=== PATIENT | male | born 1935 | race African-American/Black ===

== ENCOUNTER 2017-07-14 10:20 | Inpatient (IN) ==
[2017-07-14] MEDS ORDERED: DEXTROSE 50% 25 GM/50 ML SYRINGE IV PRN (12:20)
[2017-07-14] MEDS ORDERED: GLUCAGON 1 MG VIAL IM PRN (12:20)
[2017-07-14] MEDS ORDERED: ACETAMINOPHEN 325 MG TABLET PO PRN (12:20)
[2017-07-14] MEDS ORDERED: ALBUTEROL 2.5 MG/3 ML NEB RESP TX PRN (12:20)
[2017-07-14] MEDS ORDERED: GABAPENTIN 300 MG CAPSULE PO PRN (12:25)
[2017-07-14 12:56] LABS: Basophils % 0.6 % (0.0-0.8); Eosinophils # 0.3 10*3/uL (0.0-0.87); Eosinophils % 3.5 % (0.00-10.9); Hematocrit 27.3 VOL% (42.0-52.0); Hemoglobin 8.8 GM/DL (14.0-18.0); Immature Granulocytes % 0.4 %; Immature Granulocytes Absolute 0.03 #; Lymphocytes # 1.7 10*3/uL (1.4-4.0); Lymphocytes % 23.6 % (21.2-54.2); Mean Corpuscular HGB Conc 32.2 GM/DL (32-36); Mean Corpuscular Hemoglobin 28 PG (27-34); Mean Corpuscular Volume 86.9 FL (87-102); Mean Platelet Volume 10.6 FL (9.6-12.0); Monocytes # 0.5 10*3/uL (0.11-0.8); Monocytes % 7.1 % (1.7-12.7); Neutrophils # 4.7 10*3/uL (1.4-7.4); Neutrophils % 64.8 % (38.7-73.9); Platelet Count 139 T/CUMM (130-400); Red Blood Count 3.14 MC/CUMM (3.8-5.5); Red Cell Distribution Width 12.7 % (9.3-17.3); White Blood Count 7.2 T/CUMM (4-12)
[2017-07-14 13:04] LABS: Partial Thromboplastin Time 33.2 SECS (0-40)
[2017-07-14 13:10] LABS: INR 2.3
[2017-07-14 13:25] LABS: Calcium 8.9 MG/DL (8.5-10.1); Magnesium 2.3 MG/DL (1.8-2.4); Osmolality,Calculated 306.1 MOS/KG (273-304)
[2017-07-14] MEDS ORDERED: LIDOCAINE 1%/EPI INJ 20 ML VIAL ONE (13:31)
[2017-07-14] MEDS ORDERED: HEPARIN 5,000 UNIT/1 ML VIAL ONE (13:31)
--- NOTE | 2017-07-14 13:39 | General Surgery Consult Note ---
Assessment and Plan (1) End stage chronic kidney disease Status: Acute Assessment and plan: The patient now with end-stage renal disease with the recommendation to initiate dialysis hopefully today by Dr. Maldonado. We have been requested to place a hemodialysis catheter. The risks of the procedure were reviewed with the patient including but not limited to infection, injury to adjacent structures, pneumothorax, wound healing complications, septicemia which could be life-threatening, clotting of the catheter and the need for additional procedures. Patient expressed understanding of these risks and agrees to proceed with tunneled hemodialysis catheter placement today. Current Visit: Yes History of Present Illness Chief complaint: Needs to HD catheter History of present illness: Mr. Moreno is a 81 year old male with progressive chronic kidney disease now with end-stage renal disease requiring hemodialysis. Patient is a past medical history CAD with CABG in 2002, GERD, hypertension, hyperlipidemia and BPH. We have been consulted for catheter placement. Patient has no history of neck or chest trauma. No signs of recent illness. Home Medications Medication Instructions Recorded Confirmed Type Acetaminophen Tab [Tylenol Tab] 2 caplet PO DIRECTED 05/22/15 07/14/17 History Alfuzosin HCl [Alfuzosin HCl ER] 10 mg PO DAILY 05/22/15 07/14/17 History Aspirin [Ecotrin] 325 mg PO DAILY 05/22/15 07/14/17 History Atorvastatin [Lipitor] 40 mg PO BEDTIME 05/22/15 07/14/17 History Carvedilol 25 mg PO BID 05/22/15 07/14/17 History Esomeprazole Magnesium [Nexium] 40 mg PO DAILY 05/22/15 07/14/17 History Ferrous Sulfate 1 tablet PO DAILY 05/22/15 07/14/17 History Fesoterodine [Toviaz] 4 mg PO DAILY 05/22/15 07/14/17 History Furosemide 40 mg PO DAILY 05/22/15 07/14/17 History Gabapentin 1 tablet PO BEDTIME PRN 05/22/15 07/14/17 History Magnesium Oxide [Magnesium] 400 mg PO BID 05/22/15 07/14/17 History Miralax 1 packet PO DAILY PRN 05/22/15 07/14/17 History Rasagiline [Azilect] 1 mg PO DAILY 05/22/15 07/14/17 History Warfarin Sodium 5 mg PO DIRECTED 05/22/15 07/14/17 History Warfarin Sodium 7.5 mg PO DIRECTED 05/22/15 07/14/17 History cloNIDine HCl [Clonidine HCl] 0.2 mg PO BID 05/22/15 07/14/17 History Carbidopa/Levodopa 25 mg PO TID 07/14/17 07/14/17 History [Carbidopa-Levodopa 25-100 Tab] Ropinirole HCl [Requip] 5 mg PO TID 07/14/17 07/14/17 History Allergies Allergy/AdvReac Type Severity Reaction Status Date / Time No Known Allergies Allergy Verified 05/30/15 06:21 Medical,Surgical,& Family Hx - Medical History Cardio: History of: CAD, Hypertension Comment Only: Cardiovascular Problems (BLOOD CLOT LEG -HX) HEENT: History of: Eye Problem (CATARACTS) Endocrine: History of: Dyslipidemia Respiratory: Comment Only: Respiratory Problems (SINUS SURGERY) Renal: History of: Renal Failure (stage III) Genitourinary: History of: Prostate Problems (BPH) Gastrointestinal: History of: GERD Musculoskeletal: History of: Musculoskeletal Problems Hematology: History of: Anemia - Surgical History Cardiac Surgeries: Sugical HX of: Cardiac Catheterization, Cardiac Surgery ( status post CABG. Stent placement) Neurologic Surgeries: Patient denies: Neurologic Surgery HEENT Surgeries: Surgical HX of: Eye Surgery (CATARACTS) Abdominal Surgeries: Surgical HX of: Appendectomy, Colonoscopy, EGD, Hernia Repair Orthopedic Surgeries: Surgical HX of;: Total Knee Replacement (LEFT) - Family History Family History: Reports;: Family Hypertension (SON DAUGHTER) - Social History Smoking Status: Never smoker - Constitutional Constitutional: Absent: chills, fever(s) Hematologic/Lymphatic: Present: other (pt on chronic coumadin) Exam - Constitutional Vitals: Period Temp Pulse Resp BP Sys/Parker Pulse Ox Last 24 Hr 97.3 F-97.3 F 88-88 18-18 193-193/98-98 97-97 General appearance: no acute distress - Respiratory Respiratory exam: Present: clear to auscultation bilaterally - Cardiovascular Cardiovascular exam: Present: RRR - Neurological Exam Neurological exam: Present: alert, oriented X3 Results - Labs CBC & BMP: 07/14/17 12:42 Labs: Labs pending
[2017-07-14] MEDS ORDERED: ALBUTEROL 2.5 MG/3 ML NEB RESP TX ONE (14:02)
--- NOTE | 2017-07-14 14:09 | Order Completion Report ---
See report scanned to EMR
[2017-07-14 14:11] LABS: Potassium 6.6 MMOL/L (3.5-5.1)
[2017-07-14] MEDS: SODIUM CHLORIDE 0.9% 250 ML IV SCH (14:21)
--- NOTE | 2017-07-14 14:21 | XRay Report ---
History: Shortness of breath Date: 07/14/2017 Study: Chest x-ray AP portable Comparison exam: May 30, 2015 There is mild cardiomegaly. The mediastinal contours are stable in this patient status post prior median sternotomy. The pulmonary vasculature is not grossly engorged. There is moderate elevation of the left hemidiaphragm. There is some minor platelike scar or atelectasis in the left lung base as before. There is no obvious new or worsening infiltrate. There is no gross pleural effusion. Osseous structures are unchanged. Impression: No gross overall change from the previous study PROCEDURE INTERPRETED AT [facility] DEPARTMENT OF RADIOLOGY Final Report Signed by: Dr. Chyna Carrillo
[2017-07-14 14:42] LABS: Hepatitis A Ab IgM Quant 0.19 Index; Hepatitis A Ab IgM Result Negative (Negative); Hepatitis B Core IgM Quant 0.14 Index; Hepatitis B Core IgM Result Negative (Negative); Hepatitis B Surface Ag Quant < 0.10 Index; Hepatitis B Surface Ag Result Negative (Negative); Hepatitis C Virus Ab Quant 0.05 Index; Hepatitis C Virus Ab Result Negative (Negative)
[2017-07-14] MEDS: rOPINIRole 1 MG TABLET PO SCH ×2 (14:44→20:12)
[2017-07-14] MEDS: ENOXAPARIN 30 MG/0.3 ML SYRINGE SUBCUT SCH (14:44)
[2017-07-14] MEDS: CARBIDOPA/LEVODOPA 25-100 MG TABLET PO SCH ×2 (14:45→20:11)
[2017-07-14] MEDS ORDERED: PROPOFOL 200 MG/20 ML VIAL IV ONE (15:06)
[2017-07-14] MEDS ORDERED: LABETALOL 100 MG/20 ML VIAL IV ONE (15:06)
[2017-07-14] MEDS ORDERED: fentaNYL 100 MCG/2 ML VIAL ONE (15:06)
[2017-07-14] MEDS ORDERED: SODIUM CHLORIDE 0.9% 100 ML IV ONE (15:07)
--- NOTE | 2017-07-14 15:12 | Anesthesia Post-Op ---
Anesthesia Post OP - Post Ansesthetic Evaluation Patient seen in post op: Yes Resp: within normal limits CV: within normal limits Mental: within normal limits Temp: within normal limits [id number]: within normal limits Nausea and Vomiting: within normal limits Pain: within normal limits
--- NOTE | 2017-07-14 15:19 | Operative Note ---
Date of procedure: 07/14/17 Pre-op diagnosis: End-stage renal disease Post-op diagnosis: same Procedure: Procedure performed: Placement of right internal jugular tunneled hemodialysis catheter Procedure in detail: After informed consent was obtained, patient was taken operating suite lies upon the operating table. After monitored anesthesia was initiated the patient was placed in Trendelenburg position and the bilateral neck and chest were prepped and draped in usual sterile fashion. After procedural pause ultrasound was brought onto the field through a sterile sleeve covering ultrasound the right neck revealed a patent and compressible right internal jugular vein. Right internal jugular vein was then accessed using an 18-gauge Seldinger needle under ultrasound guidance on the first attempt. There is return of nonpulsatile dark red blood. Guidewire inserted without resistance. Fluoroscopy demonstrated guidewire be coursing in appropriate position. Next a 23 cm cuffed hemodialysis catheter was tunneled from a separate incision in the right chest wall up to the base the right neck. Dilator and sheath were placed over the guidewire using Seldinger technique under fluoroscopic guidance. The dilator and guidewire were removed leaving the sheath in place. The catheter inserted through the sheath and sheath peeled away leaving the catheter tip in superior vena cava. Catheter withdrew and flushed easily was locked with heparinized saline. It was secured in place with 2-0 nylon suture. Incision closed with 2-0 nylon suture. Sterile dressings were applied. The patient was taken recovery room in stable condition. All lap and needle counts were correct at the end the case. Anesthesia: MAC, local Surgeon / Physician: Suman Cleaning Estimated blood loss: other (Less than 10 cc) Specimens: none sent Condition: stable Disposition: PACU Results - Labs CBC & BMP: 07/14/17 12:42 07/14/17 13:49 Discharge Plan - Discharge Medications No Action Magnesium Oxide [Magnesium] 400 mg PO BID Miralax 1 packet PO DAILY PRN PRN Reason: Constipation Fesoterodine [Toviaz] 4 mg PO DAILY Warfarin Sodium 5 mg PO DIRECTED Warfarin Sodium 7.5 mg PO DIRECTED Alfuzosin HCl [Alfuzosin HCl ER] 10 mg PO DAILY Atorvastatin [Lipitor] 40 mg PO BEDTIME Carvedilol 25 mg PO BID Gabapentin 1 tablet PO BEDTIME PRN PRN Reason: neuropathy Furosemide 40 mg PO DAILY Ferrous Sulfate 1 tablet PO DAILY Rasagiline [Azilect] 1 mg PO DAILY cloNIDine HCl [Clonidine HCl] 0.2 mg PO BID Esomeprazole Magnesium [Nexium] 40 mg PO DAILY Acetaminophen Tab [Tylenol Tab] 2 caplet PO DIRECTED Aspirin [Ecotrin] 325 mg PO DAILY Carbidopa/Levodopa [Carbidopa-Levodopa 25-100 Tab] 25 mg PO TID Ropinirole HCl [Requip] 5 mg PO TID - Follow Up or Referral - Forms/Instructions
--- NOTE | 2017-07-14 15:32 | XRay Report ---
Exam: XR chest 1V portable Date: 07/14/2017 3:15 PM Indication: Post dialysis catheter placement Comparison: None Technical: 07/14/2017 Findings: Right IJ dialysis catheter has been placed. The distal tip is in the superior vena cava. There is elevation left hemidiaphragm. Sternotomy wires are present with mild cardiac enlargement. Mild interstitial and alveolar shunt vascularity present. No pneumothorax. Impression: 1. Interval placement right IJ dialysis catheter 2. Component of cardiac decompensation and volume overload with sternotomy wires present. PROCEDURE INTERPRETED AT [facility] DEPARTMENT OF RADIOLOGY Final Report Signed by: Dr. Yusuf Robles
--- NOTE | 2017-07-14 17:01 | Nephrology History & Physical ---
History of Present Illness Chief complaint: End-stage renal disease, hyperkalemia, shortness of breath. History of present illness: Mr. Moreno is a 81 year old male patient with a history of chronic kidney disease due to hypertension has had progressive worsening of his renal function over the last 6 months. He presented to clinic today with a potassium greater than 6 exam creatinine greater than 5.5. There is been no changes in his medications. The family members report the patient has had decreased appetite shortness of breath and increased fatigue. He denies nausea or vomiting. Discussed with patient about renal replacement therapy was done in clinic he agreed to be admitted to have a dialysis catheter in place. Home Medications Medication Instructions Recorded Confirmed Type Acetaminophen Tab [Tylenol Tab] 2 caplet PO DIRECTED 05/22/15 07/14/17 History Alfuzosin HCl [Alfuzosin HCl ER] 10 mg PO DAILY 05/22/15 07/14/17 History Aspirin [Ecotrin] 325 mg PO DAILY 05/22/15 07/14/17 History Atorvastatin [Lipitor] 40 mg PO BEDTIME 05/22/15 07/14/17 History Carvedilol 25 mg PO BID 05/22/15 07/14/17 History Esomeprazole Magnesium [Nexium] 40 mg PO DAILY 05/22/15 07/14/17 History Ferrous Sulfate 1 tablet PO DAILY 05/22/15 07/14/17 History Fesoterodine [Toviaz] 4 mg PO DAILY 05/22/15 07/14/17 History Furosemide 40 mg PO DAILY 05/22/15 07/14/17 History Gabapentin 1 tablet PO BEDTIME PRN 05/22/15 07/14/17 History Magnesium Oxide [Magnesium] 400 mg PO BID 05/22/15 07/14/17 History Miralax 1 packet PO DAILY PRN 05/22/15 07/14/17 History Rasagiline [Azilect] 1 mg PO DAILY 05/22/15 07/14/17 History Warfarin Sodium 5 mg PO DIRECTED 05/22/15 07/14/17 History Warfarin Sodium 7.5 mg PO DIRECTED 05/22/15 07/14/17 History cloNIDine HCl [Clonidine HCl] 0.2 mg PO BID 05/22/15 07/14/17 History Carbidopa/Levodopa 25 mg PO TID 07/14/17 07/14/17 History [Carbidopa-Levodopa 25-100 Tab] Ropinirole HCl [Requip] 5 mg PO TID 07/14/17 07/14/17 History Allergies Allergy/AdvReac Type Severity Reaction Status Date / Time No Known Allergies Allergy Verified 05/30/15 06:21 Review of Systems Constitutional: anorexia, lethargy, no chills Cardiovascular: dyspnea, dyspnea on exertion, no chest pain at rest, no chest pain with activity Respiratory: dyspnea Neurological: no abnormal gait Medical,Surgical,& Family Hx - Medical History Cardio: History of: CAD, Hypertension Comment Only: Cardiovascular Problems (BLOOD CLOT LEG -HX) HEENT: History of: Eye Problem (CATARACTS) Endocrine: History of: Dyslipidemia Respiratory: Comment Only: Respiratory Problems (SINUS SURGERY) Renal: History of: Renal Failure (stage III) Genitourinary: History of: Prostate Problems (BPH) Gastrointestinal: History of: GERD Musculoskeletal: History of: Musculoskeletal Problems Hematology: History of: Anemia - Surgical History Cardiac Surgeries: Sugical HX of: Cardiac Catheterization, Cardiac Surgery ( status post CABG. Stent placement) Neurologic Surgeries: Patient denies: Neurologic Surgery HEENT Surgeries: Surgical HX of: Eye Surgery (CATARACTS) Abdominal Surgeries: Surgical HX of: Appendectomy, Colonoscopy, EGD, Hernia Repair Orthopedic Surgeries: Surgical HX of;: Total Knee Replacement (LEFT) - Family History Family History: Reports;: Family Hypertension (SON DAUGHTER) - Social History Smoking Status: Never smoker Exam - Nephrology - Vital Signs Vital signs: Vital Signs Temp Pulse Pulse Resp BP Pulse Ox Pulse Ox 07/14/17 15:56 98.5 F 80 18 169/84 97 07/14/17 15:45 97.7 F 80 18 180/104 98 07/14/17 15:31 81 18 161/104 97 07/14/17 15:26 83 17 173/116 98 07/14/17 15:21 85 18 176/93 97 07/14/17 15:14 85 17 148/113 97 07/14/17 15:07 97.7 F 88 16 150/117 97 07/14/17 14:19 66 15 99 07/14/17 14:14 65 15 99 07/14/17 12:00 97.3 F L 88 18 193/98 97 07/14/17 11:35 97.3 F L 88 18 193/98 97 - General Appearance General appearance: well-developed, well-nourished, fatigue EENT: ATNC Neck: supple Respiratory: clear Cardiology: regular rate, regular rhythm Gastrointestinal: normoactive bowel sounds, no tenderness Neurologic: alert and oriented x3 Musculoskeletal: no deformities, no clubbing Psychiatric: mood/affect appropriate Results - Labs CBC & BMP: 07/14/17 12:42 07/14/17 13:49 Assessment and Plan (1) Coronary artery disease Status: Chronic Current Visit: No (2) History of ischemic cardiomyopathy Status: Chronic Current Visit: No (3) Hypertension Status: Chronic Current Visit: No Qualifiers: Hypertension type: essential hypertension Qualified Code(s): I10 - Essential (primary) hypertension (4) End stage chronic kidney disease Status: Acute Assessment and plan: Hepatitis panel. Dialysis today. We will plan for 3 hours of dialysis tomorrow. Continue with a 2K bath. Current Visit: Yes
--- NOTE | 2017-07-14 17:04 | Dialysis Note ---
Dialysis Note - Dialysis Note Patient seen on dialysis. Tolerating the procedure. Blood pressure 132/72. Cardiovascular regular rate. Lungs clear to auscultation.
[2017-07-14] MEDS: INSULIN REGULAR 100 UNIT/ML SUBCUT SCH ×2 (18:30→20:51)
[2017-07-14] MEDS: ATORVASTATIN 40 MG TABLET PO SCH (20:11)
[2017-07-14] MEDS: DOCUSATE SODIUM 100 MG CAPSULE PO SCH (20:11)
[2017-07-14] MEDS: CARVEDILOL 25 MG TABLET PO SCH (20:12)
[2017-07-15] MEDS: SODIUM CHLORIDE 0.9% 250 ML IV SCH (03:28)
[2017-07-15 05:20] LABS: Basophils # 0.1 10*3/uL (0.0-0.2); Basophils % 0.6 % (0.0-0.8); Eosinophils # 0.3 10*3/uL (0.0-0.87); Eosinophils % 3.7 % (0.00-10.9); Hematocrit 25.1 VOL% (42.0-52.0); Immature Granulocytes % 0.4 %; Immature Granulocytes Absolute 0.03 #; Lymphocytes # 2.1 10*3/uL (1.4-4.0); Mean Corpuscular HGB Conc 31.9 GM/DL (32-36); Mean Corpuscular Hemoglobin 28 PG (27-34); Mean Corpuscular Volume 87.2 FL (87-102); Mean Platelet Volume 10.9 FL (9.6-12.0); Monocytes # 0.7 10*3/uL (0.11-0.8); Monocytes % 9.1 % (1.7-12.7); Neutrophils # 4.8 10*3/uL (1.4-7.4); Neutrophils % 60.2 % (38.7-73.9); Platelet Count 103 T/CUMM (130-400); Red Blood Count 2.88 MC/CUMM (3.8-5.5); Red Cell Distribution Width 12.4 % (9.3-17.3)
[2017-07-15 05:58] LABS: Albumin 3.3 G/DL (3.4-5.0); Calcium 8.6 MG/DL (8.5-10.1); Osmolality,Calculated 298.3 MOS/KG (273-304); Phosphorous 4.2 MG/DL (2.5-4.9); Potassium 5.7 MMOL/L (3.5-5.1)
[2017-07-15] MEDS: INSULIN REGULAR 100 UNIT/ML SUBCUT SCH ×4 (08:02→21:23)
[2017-07-15] MEDS: rOPINIRole 1 MG TABLET PO SCH ×3 (08:44→21:22)
[2017-07-15] MEDS: RASAGILINE 0.5 MG TABLET PO SCH (08:44)
[2017-07-15] MEDS: CARBIDOPA/LEVODOPA 25-100 MG TABLET PO SCH ×3 (08:45→21:23)
[2017-07-15] MEDS: ALFUZOSIN 10 MG TABLET PO SCH (08:45)
[2017-07-15] MEDS: DOCUSATE SODIUM 100 MG CAPSULE PO SCH ×2 (08:45→21:23)
[2017-07-15] MEDS: PANTOPRAZOLE 40 MG TABLET PO SCH (08:45)
[2017-07-15] MEDS: ENOXAPARIN 30 MG/0.3 ML SYRINGE SUBCUT SCH ×2 (08:45→12:55)
[2017-07-15] MEDS: CARVEDILOL 25 MG TABLET PO SCH ×2 (08:45→21:23)
[2017-07-15] MEDS ORDERED: HEPARIN 10,000 UNIT/10 ML VIAL IV PRN (11:20)
--- NOTE | 2017-07-15 12:15 | Dialysis Note ---
Dialysis Note - Dialysis Note Mr. Moreno is seen during his hemodialysis and he is doing well. His blood pressure stable.
--- NOTE | 2017-07-15 14:18 | Cardiology Consult Note ---
I, Maria Luisa Das RN, am scribing for, and in the presence of, Tyson Perales MD 14:17. Assessment and Plan - Time spent with patient Time spent with patient: Greater than 30 minutes (Due to assessment, planning, documentation, medication review) (1) Coronary artery disease Status: Chronic Assessment and plan: Clinically he is well compensated and free of angina. Continue current management. 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 His INR yesterday was 2.3. His warfarin is currently on hold. I think it is safe to stop the Coumadin at this time. If he develops repeat thrombosis in the future we could reconsider this. For now, I think we can leave this off as dialysis patients already have an increased risk of bleeding, particularly on full anticoagulation. I am going to drop off his case at this time. If I can be of further assistance please let me know. The patient has a follow-up appointment with Dr. Gerber, his primary head of maintenance next month. Current Visit: Yes (3) End stage chronic kidney disease Status: Acute Assessment and plan: Patient was admitted for placement of dialysis catheter. Nephrology is following. Current Visit: Yes (4) Status post coronary artery bypass grafting Status: Acute Assessment and plan: He had three-vessel coronary bypass grafting in March 2003. Current Visit: No (5) History of ischemic cardiomyopathy Status: Chronic Assessment and plan: Ejection fraction 55% by echocardiogram done November 19, [address] Gerber's office. Current Visit: No (6) Hypertension Status: Chronic Assessment and plan: His blood pressures been elevated since admission, his home medications have been restarted. Current Visit: No Qualifiers: Hypertension type: essential hypertension Qualified Code(s): I10 - Essential (primary) hypertension History of Present Illness - Data of Consult Patient: known to practice within the last 3 years Consult date: 07/14/17 Requesting Physician: Byron Soliz Jr. Primary care physician: Cristal Marshall - Consult Narrative Reason for consult: History of CAD, on Coumadin now on dialysis History of present illness: Outreach Educator: Dr. Gerber PCP: Dr. Marshall Mr. Moreno is a 81 year old male with a history of CAD, BPH, ischemic cardiomyopathy, chronic kidney disease, history of DVT, esophageal stricture, GERD, hypertension, and dyslipidemia. He is a fair historian although somewhat difficult to understand his speech. He underwent coronary artery bypass surgery with SALAZAR to the left anterior descending coronary artery and single reverse saphenous vein graft to the diagonal and right coronary arteries on April 14, 2003. Echocardiogram done at Dr. Gerber's office November 19, 2016 with ejection fraction 55%, grade 1 diastolic dysfunction. Other surgical history includes bilateral cataracts, appendectomy, and left knee replacement. He reports he is a former smoker, stating he quit about 40 years ago. Mr. Moreno was seen Dr. Soliz's office on July 14 with potassium greater than 6 and creatinine greater than 5.5. He was admitted to the hospital to have a dialysis catheter placed. He underwent placement of right internal jugular tunneled hemodialysis catheter on July [address] Cleaning. He was dialyzed on July 14. Cardiology was consulted to see the patient regarding history of CAD and to review whether or not he should remain on full anticoagulation, now that he is on dialysis. He is anticoagulated on warfarin because of a history of DVT. Apparently when he had knee surgery about a year or so ago he developed a deep venous thrombosis and has been on warfarin since that time. INR yesterday was 2.3. His warfarin is currently on hold. He denies any chest pain, dizziness, or palpitations. He does complain of some dyspnea on exertion, but states he has had this for about 6 months and has gotten no worse. His H&H today is low at 8.0 and 25.1. Platelet count is 103. His potassium has improved some at 5.7 and creatinine down to 4.7. He tells me he is scheduled to dialyze again today. His blood pressures been elevated since admission, they are little better this morning at 159/86. CC: Byron Soliz Jr., MD - Home Medications and Allergies Home Medications: Home Medications Medication Instructions Recorded Confirmed Type Acetaminophen Tab [Tylenol Tab] 2 caplet PO DIRECTED 05/22/15 07/14/17 History Alfuzosin HCl [Alfuzosin HCl ER] 10 mg PO DAILY 05/22/15 07/14/17 History Aspirin [Ecotrin] 325 mg PO DAILY 05/22/15 07/14/17 History Atorvastatin [Lipitor] 40 mg PO BEDTIME 05/22/15 07/14/17 History Carvedilol 25 mg PO BID 05/22/15 07/14/17 History Esomeprazole Magnesium [Nexium] 40 mg PO DAILY 05/22/15 07/14/17 History Ferrous Sulfate 1 tablet PO DAILY 05/22/15 07/14/17 History Fesoterodine [Toviaz] 4 mg PO DAILY 05/22/15 07/14/17 History Furosemide 40 mg PO DAILY 05/22/15 07/14/17 History Gabapentin 1 tablet PO BEDTIME PRN 05/22/15 07/14/17 History Magnesium Oxide [Magnesium] 400 mg PO BID 05/22/15 07/14/17 History Miralax 1 packet PO DAILY PRN 05/22/15 07/14/17 History Rasagiline [Azilect] 1 mg PO DAILY 05/22/15 07/14/17 History Warfarin Sodium 5 mg PO DIRECTED 05/22/15 07/14/17 History Warfarin Sodium 7.5 mg PO DIRECTED 05/22/15 07/14/17 History cloNIDine HCl [Clonidine HCl] 0.2 mg PO BID 05/22/15 07/14/17 History Carbidopa/Levodopa 25 mg PO TID 07/14/17 07/14/17 History [Carbidopa-Levodopa 25-100 Tab] Ropinirole HCl [Requip] 5 mg PO TID 07/14/17 07/14/17 History Allergies/Adverse Reactions: Allergies Allergy/AdvReac Type Severity Reaction Status Date / Time No Known Allergies Allergy Verified 05/30/15 06:21 - Constitutional Constitutional: Present: as per HPI - EENT Eyes: Present: blurry vision, requires corrective lense Ears: Absent: ear pain, tinnitus Nose, mouth and throat: Absent: epistaxis, headache(s) - Cardiovascular Cardiovascular: Present: dyspnea on exertion. Absent: chest pain at rest, chest pain with activity, diaphoresis, dyspnea, edema, radiating jaw, neck or arm pain, lightheadedness, orthopnea, palpitations - Respiratory Respiratory: Present: dyspnea on exertion. Absent: cough, dyspnea, hemoptysis, wheezing - Gastrointestinal Gastrointestinal: Present: nausea. Absent: abdominal pain, constipation, diarrhea, hematemesis, hematochezia, melena, vomiting - Genitourinary Genitourinary: Absent: dysuria, hematuria - Musculoskeletal Musculoskeletal: Present: limited range of motion, muscle weakness - Neurological Neurological: Present: abnormal speech. Absent: confusion, dizziness, headache( s), syncope - Psychiatric Psychiatric: Absent: anxiety, depression - Endocrine Endocrine: Present: fatigue Medical,Surgical,& Family Hx - Medical History Cardio: History of: CAD, Hypertension Comment Only: Cardiovascular Problems (BLOOD CLOT LEG -HX) Endocrine: History of: Dyslipidemia Respiratory: Comment Only: Respiratory Problems (SINUS SURGERY) Renal: History of: Renal Failure (stage III) Genitourinary: History of: Prostate Problems (BPH) Gastrointestinal: History of: GERD Musculoskeletal: History of: Musculoskeletal Problems Hematology: History of: Anemia - Surgical History Cardiac Surgeries: Sugical HX of: Cardiac Surgery (status post CABG in 2002) HEENT Surgeries: Surgical HX of: Eye Surgery (CATARACTS) Abdominal Surgeries: Surgical HX of: Appendectomy, Colonoscopy, EGD, Hernia Repair Orthopedic Surgeries: Surgical HX of;: Total Knee Replacement (LEFT) - Family History Family History: Reports;: Family Hypertension (SON DAUGHTER) - Social History Smoking Status: Former smoker (Reportedly quit 40 years ago) Have you smoked in the last 12 months: No Frequency of Alcohol Use: None Type of Drug Use: None Lives With:: Children Functional capacity: uses cane/walker Physical Examination Vital Signs Temp Pulse Resp BP Pulse Ox 97.3 F L 88 18 193/98 97 07/14/17 11:35 07/14/17 11:35 07/14/17 11:35 07/14/17 11:35 07/14/17 11:35 General: Present: Appears Well, No Apparent Distress HEENT: Present: PERRL, Mucus Membranes Moist Neck: Present: Supple Neck, Midline Trachea, No Bruit Cardiac: Present: Reg Rate and Rhythm, No Murmur Lungs: Present: Normal Breath Sounds, No Wheeze, Rales, Rhonchi Neuro: Present: Resting Tremor. Absent: Essential Tremor Abdomen: Present: Soft, Active Bowel Sounds, Non-Tender. Absent: Distended Skin: Absent: Rash, Suspicious Lesions Extremities: Present: No Edema, Normal Upper Extr. Pulses, Normal Lower Extr. Pulses Result/EKG - Labs CBC & BMP: 07/15/17 04:51 07/15/17 04:51 Lab Results: I have reviewed the past 24 hour labs Labs: Laboratory Results - last 24 hr 07/14/17 07/14/17 07/14/17 12:42 12:42 12:42 WBC 7.2 RBC 3.14 L Hgb 8.8 L Hct 27.3 L MCV 86.9 L MCH 28 MCHC 32.2 RDW 12.7 Plt Count 139 MPV 10.6 Neut % (Auto) 64.8 Lymph % (Auto) 23.6 [place] % (Auto) 7.1 Eos % (Auto) 3.5 Baso % (Auto) 0.6 Neut # (Auto) 4.7 Lymph # (Auto) 1.7 [place] # (Auto) 0.5 Eos # (Auto) 0.3 Baso # (Auto) 0.0 Immature Gran % 0.4 Nucleated RBC % 0.0 Immature Gran # 0.03 Nucleated RBCs # 0.00 Immature Plt Fraction 0.0 INR 2.3 PT Patient/Control Mix 24.0 D Circ Anticoag PTT 33.2 Sodium Potassium Chloride Carbon Dioxide Anion Gap BUN Creatinine GFR Calculation BUN/Creatinine Ratio Glucose POC Glucose Calculated Osmolality Calcium Phosphorus Magnesium Albumin Hepatitis A IgM Ab Negative Hep Bs Antigen Negative Hep B Core IgM Ab Negative Hepatitis C Antibody Negative 07/14/17 07/14/17 07/14/17 13:48 13:49 20:25 WBC RBC Hgb Hct MCV MCH MCHC RDW Plt Count MPV Neut % (Auto) Lymph % (Auto) [place] % (Auto) Eos % (Auto) Baso % (Auto) Neut # (Auto) Lymph # (Auto) [place] # (Auto) Eos # (Auto) Baso # (Auto) Immature Gran % Nucleated RBC % Immature Gran # Nucleated RBCs # Immature Plt Fraction INR PT Patient/Control Mix Circ Anticoag PTT Sodium 142 Potassium 6.6 H* Chloride 113 H Carbon Dioxide 22 Anion Gap 13.6 BUN 80 H Creatinine 5.50 H GFR Calculation 14 BUN/Creatinine Ratio 14.00 Glucose 94 POC Glucose 106 175 H Calculated Osmolality 306.1 H Calcium 8.9 Phosphorus Magnesium 2.3 Albumin Hepatitis A IgM Ab Hep Bs Antigen Hep B Core IgM Ab Hepatitis C Antibody 07/15/17 07/15/17 07/15/17 04:51 04:51 08:01 WBC 8.0 RBC 2.88 L Hgb 8.0 L Hct 25.1 L MCV 87.2 MCH 28 MCHC 31.9 L RDW 12.4 Plt Count 103 L D MPV 10.9 Neut % (Auto) 60.2 Lymph % (Auto) 26.0 [place] % (Auto) 9.1 Eos % (Auto) 3.7 Baso % (Auto) 0.6 Neut # (Auto) 4.8 Lymph # (Auto) 2.1 [place] # (Auto) 0.7 Eos # (Auto) 0.3 Baso # (Auto) 0.1 Immature Gran % 0.4 Nucleated RBC % 0.0 Immature Gran # 0.03 Nucleated RBCs # 0.00 Immature Plt Fraction 0.0 INR PT Patient/Control Mix Circ Anticoag PTT Sodium 141 Potassium 5.7 H Chloride 109 H Carbon Dioxide 24 Anion Gap 13.7 BUN 64 H D Creatinine 4.70 H GFR Calculation 17 BUN/Creatinine Ratio 13.00 Glucose 90 POC Glucose 99 Calculated Osmolality 298.3 Calcium 8.6 Phosphorus 4.2 Magnesium Albumin 3.3 L Hepatitis A IgM Ab Hep Bs Antigen Hep B Core IgM Ab Hepatitis C Antibody - Diagnostic Findings Procedure: Chest x-ray: report reviewed by me - EKG EKG results: interpreted by ms EKG shows: sinus rhythm IDiaz Michael, MD, personally performed the services described in this documentation, ascribed by Maria Luisa Das RN in my presence, and it is both accurate and complete 418 .
--- NOTE | 2017-07-15 15:36 | Event Note ---
Patient is postop day #1 status post tunneled hemodialysis catheter placement. The device functioned without difficulty. A post procedure chest x-ray performed confirm proper placement. There is no active bleeding or hematoma noted at the insertion site. Patient has been afebrile. No further surgical service is required. Patient may follow-up in the outpatient clinic with Dr. Cleaning in 2-3 weeks following vein mapping.
[2017-07-15] MEDS: ATORVASTATIN 40 MG TABLET PO SCH (21:23)
[2017-07-16 06:29] LABS: Basophils % 0.4 % (0.0-0.8); Eosinophils # 0.3 10*3/uL (0.0-0.87); Eosinophils % 4.3 % (0.00-10.9); Hematocrit 23.5 VOL% (42.0-52.0); Immature Granulocytes % 0.3 %; Immature Granulocytes Absolute 0.02 #; Lymphocytes # 2.1 10*3/uL (1.4-4.0); Lymphocytes % 28.5 % (21.2-54.2); Mean Corpuscular HGB Conc 32.8 GM/DL (32-36); Mean Corpuscular Hemoglobin 28 PG (27-34); Mean Corpuscular Volume 85.5 FL (87-102); Mean Platelet Volume 11.1 FL (9.6-12.0); Monocytes # 0.7 10*3/uL (0.11-0.8); Monocytes % 9.9 % (1.7-12.7); Neutrophils # 4.1 10*3/uL (1.4-7.4); Neutrophils % 56.6 % (38.7-73.9); Red Blood Count 2.75 MC/CUMM (3.8-5.5); Red Cell Distribution Width 12.3 % (9.3-17.3); White Blood Count 7.2 T/CUMM (4-12)
[2017-07-16 06:39] LABS: Hemoglobin 7.7 GM/DL (14.0-18.0); Platelet Count 81 T/CUMM (130-400)
[2017-07-16 07:02] LABS: Burr Cells Slight; Elliptocytes Few; Giant Platelets Few; Hypochromasia 1+; Platelet Estimate Decreased
[2017-07-16] MEDS: INSULIN REGULAR 100 UNIT/ML SUBCUT SCH ×4 (08:01→21:07)
[2017-07-16] MEDS ORDERED: SODIUM CHLORIDE 0.9% 250 ML IV PRN (08:04)
[2017-07-16] MEDS: rOPINIRole 1 MG TABLET PO SCH ×3 (08:41→21:52)
[2017-07-16] MEDS: DOCUSATE SODIUM 100 MG CAPSULE PO SCH ×2 (08:41→21:07)
[2017-07-16] MEDS: PANTOPRAZOLE 40 MG TABLET PO SCH (08:42)
[2017-07-16] MEDS: CARBIDOPA/LEVODOPA 25-100 MG TABLET PO SCH ×3 (08:42→21:07)
[2017-07-16] MEDS: RASAGILINE 0.5 MG TABLET PO SCH (08:42)
[2017-07-16] MEDS: ENOXAPARIN 30 MG/0.3 ML SYRINGE SUBCUT SCH ×2 (08:42→12:43)
[2017-07-16] MEDS: ALFUZOSIN 10 MG TABLET PO SCH (08:42)
[2017-07-16] MEDS: CARVEDILOL 25 MG TABLET PO SCH ×2 (08:42→21:07)
--- NOTE | 2017-07-16 12:40 | Dialysis Note ---
Dialysis Note - Dialysis Note Mr. Moreno is seen during his hemodialysis. He is lying flat breathing easily. Blood pressures been stable he has no complaints.
--- NOTE | 2017-07-16 15:31 | Nephrology Progress Note ---
Nephrology - PN: Subj Interval history: Patient is resting comfortably. Tolerated dialysis well yesterday. I may arrange for patient to get outpatient hemodialysis at the [facility] dialysis unit on a Thursday schedule. Plan for dialysis tomorrow. Exam (PN)-Nephrology - Vital Signs Vital signs: Period Temp Pulse Resp BP Sys/Parker Pulse Ox Last 24 Hr 97.3 F-98.7 F 82-91 18-22 116-146/69-78 94-99 - General Appearance General appearance: well-developed, well-nourished EENT: ATNC Neck: supple Respiratory: clear Cardiology: regular rate, regular rhythm Gastrointestinal: normoactive bowel sounds Neurologic: alert and oriented x3 Musculoskeletal: no clubbing Psychiatric: mood/affect appropriate, cooperative - Lab 07/16/17 05:08 07/15/17 04:51 Most recent lab results Calcium 8.6 MG/DL (8.5-10.1) 07/15/17 04:51 Phosphorus 4.2 MG/DL (2.5-4.9) 07/15/17 04:51 Magnesium 2.3 MG/DL (1.8-2.4) 07/14/17 13:49 Assessment and Plan (1) Coronary artery disease Status: Chronic Current Visit: Yes (2) History of ischemic cardiomyopathy Status: Chronic Current Visit: No (3) Hypertension Status: Chronic Current Visit: No Qualifiers: Hypertension type: essential hypertension Qualified Code(s): I10 - Essential (primary) hypertension (4) End stage chronic kidney disease Status: Chronic Assessment and plan: End-stage renal disease. Outpatient hemodialysis at the [facility] dialysis unit on Thursday schedule. Current Visit: Yes Specialty Discharge - Follow Up or Referrals Follow up with: Suman Cleaning MD [Physician] - 08/05/17 10:00 am (VEIN MAPPING THEN FOLLOW UP IN 2-3 WEEKS vein mapping is schedule for 08/03/2017@2:[address] Cleaning patient need to bring Id or Home Health Care Provider [place], list of medicne,insurance card )
[2017-07-16] MEDS: ATORVASTATIN 40 MG TABLET PO SCH (21:07)
[2017-07-17 06:40] LABS: Basophils % 0.5 % (0.0-0.8); Eosinophils # 0.4 10*3/uL (0.0-0.87); Hematocrit 27.4 VOL% (42.0-52.0); Hemoglobin 9.1 GM/DL (14.0-18.0); Immature Granulocytes % 0.4 %; Immature Granulocytes Absolute 0.03 #; Lymphocytes # 2.1 10*3/uL (1.4-4.0); Lymphocytes % 28.1 % (21.2-54.2); Mean Corpuscular HGB Conc 33.2 GM/DL (32-36); Mean Corpuscular Hemoglobin 28 PG (27-34); Mean Corpuscular Volume 85.6 FL (87-102); Mean Platelet Volume 11.3 FL (9.6-12.0); Monocytes # 0.8 10*3/uL (0.11-0.8); Monocytes % 10.9 % (1.7-12.7); Neutrophils # 4.1 10*3/uL (1.4-7.4); Neutrophils % 55.1 % (38.7-73.9); Platelet Count 71 T/CUMM (130-400); Red Cell Distribution Width 12.8 % (9.3-17.3); White Blood Count 7.4 T/CUMM (4-12)
[2017-07-17 07:05] LABS: Eosinophils 7 % (0-10); Giant Platelets Few; Hypochromasia 1+; Lymphocytes 23 % (20-55); Ovalocytes Slight; Platelet Estimate Decreased; Segmented Neutrophils 60 % (50-85); Total Cells Counted 100
[2017-07-17] MEDS: INSULIN REGULAR 100 UNIT/ML SUBCUT SCH ×3 (09:10→16:52)
[2017-07-17] MEDS: rOPINIRole 1 MG TABLET PO SCH ×2 (09:11→15:30)
[2017-07-17] MEDS: CARBIDOPA/LEVODOPA 25-100 MG TABLET PO SCH ×2 (09:11→15:30)
[2017-07-17] MEDS: ALFUZOSIN 10 MG TABLET PO SCH (09:11)
[2017-07-17] MEDS: CARVEDILOL 25 MG TABLET PO SCH (09:12)
[2017-07-17] MEDS: DOCUSATE SODIUM 100 MG CAPSULE PO SCH (09:12)
[2017-07-17] MEDS: PANTOPRAZOLE 40 MG TABLET PO SCH (09:12)
[2017-07-17] MEDS: RASAGILINE 0.5 MG TABLET PO SCH (09:12)
--- NOTE | 2017-07-17 11:38 | Dialysis Note ---
Dialysis Note - Dialysis Note Patient seen on hemodialysis, he is tolerating will continue his treatment unchanged.
--- NOTE | 2017-07-17 15:01 | Discharge Summary ---
Hospital Course - Hospital Course Hospital Course: This hospitalization included patient admitted for fatigue and shortness of breath and to initiate hemodialysis. Patient had a dialysis catheter placed without event. Patient underwent hemodialysis without any issues. He had 2 units packed red blood cells given on the day before discharge. Hematocrit has been stable. Arrangements made for patient to have outpatient hemodialysis. He continued to do well throughout the rest of his hospitalization. No shortness of breath or chest pain. He is reached maximal hospitalization is prepared for discharge. He will follow outpatient hemodialysis at the [facility] dialysis unit on a Thursday schedule. Diagnosis - Discharge Diagnosis (1) Coronary artery disease Status: Chronic (2) History of ischemic cardiomyopathy Status: Chronic (3) Hypertension Status: Chronic (4) End stage chronic kidney disease Status: Chronic (5) Anemia Status: Chronic Specialty Discharge - Follow Up or Referrals Follow up with: Suman Cleaning MD [Physician] - 08/05/17 10:00 am (VEIN MAPPING THEN FOLLOW UP IN 2-3 WEEKS vein mapping is schedule for 08/03/2017@2:[address] Cleaning patient need to bring Id or Principal Systems Engineer [employer], list of medicne,insurance card ) Discharge Plan - Discharge Data Disposition: Disch To Home/Self Care Condition at Discharge: Stable Discharge Diet: advance to your usual diet Hygiene: no restrictions Contact your physician if you experience:: fever over 101 - Discharge Medications New HYDROcodone/ACETAMIN 5-325 [Kimper 5-325] 1 tablet PO Q4H PRN tablet PRN Reason: Pain Moderate (4-7) Continue Miralax 1 packet PO DAILY PRN PRN Reason: Constipation Fesoterodine [Toviaz] 4 mg PO DAILY Alfuzosin HCl [Alfuzosin HCl ER] 10 mg PO DAILY Atorvastatin [Lipitor] 40 mg PO BEDTIME Carvedilol 25 mg PO BID Gabapentin 1 tablet PO BEDTIME PRN PRN Reason: neuropathy Ferrous Sulfate 1 tablet PO DAILY Rasagiline [Azilect] 1 mg PO DAILY cloNIDine HCl [Clonidine HCl] 0.2 mg PO BID Esomeprazole Magnesium [Nexium] 40 mg PO DAILY Carbidopa/Levodopa [Carbidopa-Levodopa 25-100 Tab] 25 mg PO TID Ropinirole HCl [Requip] 5 mg PO TID Discontinued Magnesium Oxide [Magnesium] 400 mg PO BID Warfarin Sodium 5 mg PO DIRECTED Warfarin Sodium 7.5 mg PO DIRECTED Furosemide 40 mg PO DAILY Acetaminophen Tab [Tylenol Tab] 2 caplet PO DIRECTED Aspirin [Ecotrin] 325 mg PO DAILY - Follow Up or Referral Follow Up: Suman Cleaning MD [Physician] - 08/05/17 10:00 am (VEIN MAPPING THEN FOLLOW UP IN 2-3 WEEKS vein mapping is schedule for 08/03/2017@2:[address] Cleaning patient need to bring Id or Principal Systems Engineer [employer], list of medicne,insurance card ) - Forms/Instructions Exam - Constitutional Vitals: Period Temp Pulse Resp BP Sys/Parker Pulse Ox Last 24 Hr 97.0 F-98.2 F 76-94 18-20 112-133/60-77 92-96 General appearance: normal weight - Head Head exam: Present: normal inspection - Respiratory Respiratory exam: Present: clear to auscultation bilaterally - Cardiovascular Cardiovascular exam: Present: regular rate and rhythm - GI/Abdominal GI/Abdominal exam: Present: normal bowel sounds - Extremities Exam Extremities exam: Present: normal inspection - Neurological Exam Neurological exam: Present: alert, oriented X3, CN II-XII intact - Psychiatric Psychiatric exam: Present: normal affect - Skin Skin exam: Present: normal color Discharge Results Procedures and tests throughout hospitalization: Pending Orders 07/16/17 05:05 Red Blood Cells Leuko Red Stat Type and Screen Stat Labs on day of discharge: Labs from last 24 hours 07/17/17 07/17/17 07/17/17 11:25 07:07 06:05 WBC 7.4 RBC 3.20 L Hgb 9.1 L Hct 27.4 L MCV 85.6 L MCH 28 MCHC 33.2 RDW 12.8 Plt Count 71 L MPV 11.3 Neut % (Auto) 55.1 Lymph % (Auto) 28.1 [place]ell % (Auto) 10.9 Eos % (Auto) 5.0 Baso % (Auto) 0.5 Neut # (Auto) 4.1 Lymph # (Auto) 2.1 [place]ell # (Auto) 0.8 Eos # (Auto) 0.4 Baso # (Auto) 0.0 Total Counted 100 Immature Gran % 0.4 Nucleated RBC % 0.0 Immature Gran # 0.03 Segmented Neutrophils 60 Lymphocytes 23 Monocytes 10 Eosinophils 7 Nucleated RBCs # 0.00 Platelet Estimate Decreased Giant Platelets Few Immature Plt Fraction 0.0 Hypochromasia 1+ Ovalocytes Slight Morphology Comment POC Glucose 133 H 106 07/16/17 07/16/17 18:51 15:56 WBC RBC Hgb Hct MCV MCH MCHC RDW Plt Count MPV Neut % (Auto) Lymph % (Auto) [place]ell % (Auto) Eos % (Auto) Baso % (Auto) Neut # (Auto) Lymph # (Auto) [place]ell # (Auto) Eos # (Auto) Baso # (Auto) Total Counted Immature Gran % Nucleated RBC % Immature Gran # Segmented Neutrophils Lymphocytes Monocytes Eosinophils Nucleated RBCs # Platelet Estimate Giant Platelets Immature Plt Fraction Hypochromasia Ovalocytes Morphology Comment POC Glucose 104 205 H DS: Provider Date of admission: 07/14/17 10:48 Primary care physician: Cristal Marshall, Attending physician on admission: Byron Soliz Jr., MD Consults: 07/14/17 12:20 Consult to Physician [CONS] Routine Comment: Consulting Provider: Suman Cleaning When should Consulting Provider be notified: Now 07/14/17 12:22 Consult to Physician [CONS] Routine Comment: new dialysis pt, needs catheters Consulting Provider: Suman Cleaning Person Notified: [email or web address] Date Notified: 07/14/17 Time Notified: 12:23 07/14/17 12:23 Consult to Case Mgmt/Social Srvs [CONS] Routine Reason for Case Mgmt/Social Srvs: Home Health Rehab Dialysis Discharge Planning 07/14/17 17:05 Consult to Physician [CONS] Routine Comment: History of CAD on coumadin now on dialysis Consulting Provider: Davide Gerber When should Consulting Provider be notified: In am Person Notified: JOSE L Date Notified: 07/15/17 Time Notified: 08:59 07/15/17 09:42 Consult to Physical Therapy [CONS] Routine Reason for Physical Therapy: Evaluate and Treat Discharging clinician: Byron Soliz Jr., MD
[2017-07-17] MEDS: ENOXAPARIN 30 MG/0.3 ML SYRINGE SUBCUT SCH (15:30)
[2017-07-17 16:38] VITALS: BP 129/70
== END 2017-07-17 17:14 | disposition home health service (06) | DRG 673 ==
LOC: N.5E 10:48
PROVIDERS: ADMIT Internal Medicine Nephrology; ATTEND Internal Medicine Nephrology

== ENCOUNTER 2017-08-20 12:05 | Inpatient (IN) ==
[2017-08-20 13:46] LABS: Basophils % 0.3 % (0.0-0.8); Eosinophils # 0.3 10*3/uL (0.0-0.87); Eosinophils % 2.8 % (0.00-10.9); Hematocrit 29.3 VOL% (42.0-52.0); Hemoglobin 9.5 GM/DL (14.0-18.0); Immature Granulocytes % 0.5 %; Immature Granulocytes Absolute 0.05 #; Lymphocytes # 1.8 10*3/uL (1.4-4.0); Lymphocytes % 18.8 % (21.2-54.2); Mean Corpuscular HGB Conc 32.4 GM/DL (32-36); Mean Corpuscular Hemoglobin 29 PG (27-34); Mean Corpuscular Volume 88.5 FL (87-102); Mean Platelet Volume 10.1 FL (9.6-12.0); Monocytes # 0.8 10*3/uL (0.11-0.8); Monocytes % 8.5 % (1.7-12.7); Neutrophils # 6.5 10*3/uL (1.4-7.4); Neutrophils % 69.1 % (38.7-73.9); Platelet Count 109 T/CUMM (130-400); Red Blood Count 3.31 MC/CUMM (3.8-5.5); Red Cell Distribution Width 12.8 % (9.3-17.3); White Blood Count 9.4 T/CUMM (4-12)
[2017-08-20 13:54] LABS: INR 1.3; PT Patient Result 13.4 SECS
[2017-08-20 14:10] LABS: Alanine Aminotransferase 9 U/L (16-61); Albumin 3.4 G/DL (3.4-5.0); Alkaline Phosphatase 95 U/L (45-117); Aspartate Amino Transferase 17 U/L (0-37); Blood Urea Nitrogen 52 MG/DL (7-18); Glucose 113 MG/DL (74-106); Magnesium 2.6 MG/DL (1.8-2.4); Osmolality,Calculated 300.8 MOS/KG (273-304); Potassium 4.1 MMOL/L (3.5-5.1); Sodium 144 MMOL/L (136-145); Thyroid Stimulating Hormone 0.475 uIU/ml (0.358-3.74); Total Protein 7.3 G/DL (6.4-8.3); Troponin I Only < 0.015 NG/ML (0.00-0.045)
[2017-08-20] MEDS ORDERED: VANCOMYCIN INJ 1,000 MG in SODIUM CHLORIDE 0.9% 250 ML IV STA (14:25)
[2017-08-20] MEDS ORDERED: SODIUM CHLORIDE 0.9% 250 ML IV STA (14:51)
[2017-08-20] MEDS ORDERED: VANCOMYCIN 1,000 MG VIAL ONE (16:44)
[2017-08-20] MEDS ORDERED: GABAPENTIN 300 MG CAPSULE PO PRN (16:57)
[2017-08-20] MEDS ORDERED: ONDANSETRON 4 MG/2 ML VIAL IV PRN (16:58)
[2017-08-20] MEDS ORDERED: guaiFENesin/DM ER 600-30 MG TABLET PO PRN (16:58)
[2017-08-20] MEDS ORDERED: diphenhydrAMINE CAP 25 MG CAPSULE PO PRN (16:58)
[2017-08-20] MEDS ORDERED: ACETAMINOPHEN 325 MG TABLET PO PRN ×2 (16:58)
[2017-08-20] MEDS ORDERED: MORPHINE 2 MG/1 ML SYRINGE IV PRN (16:58)
[2017-08-20] MEDS: PANTOPRAZOLE 40 MG TABLET PO SCH (19:06)
[2017-08-20] MEDS: rOPINIRole 1 MG TABLET PO SCH (21:17)
[2017-08-20] MEDS: ALFUZOSIN 10 MG TABLET PO SCH (21:17)
[2017-08-20] MEDS: ENOXAPARIN 30 MG/0.3 ML SYRINGE SUBCUT SCH (21:17)
[2017-08-20] MEDS: CARBIDOPA/LEVODOPA 25-100 MG TABLET PO SCH (21:17)
[2017-08-20] MEDS: FESOTERODINE 4 MG TABLET PO SCH (21:18)
[2017-08-20] MEDS: SODIUM CHLORIDE 0.9% 1,000 ML IV SCH (21:24)
[2017-08-20] MEDS: ATORVASTATIN 40 MG TABLET PO SCH (21:24)
[2017-08-21 07:28] LABS: Basophils % 0.5 % (0.0-0.8); Eosinophils # 0.2 10*3/uL (0.0-0.87); Eosinophils % 2.8 % (0.00-10.9); Hematocrit 26.2 VOL% (42.0-52.0); Hemoglobin 8.4 GM/DL (14.0-18.0); Immature Granulocytes % 0.7 %; Immature Granulocytes Absolute 0.06 #; Lymphocytes # 2.2 10*3/uL (1.4-4.0); Lymphocytes % 26.6 % (21.2-54.2); Mean Corpuscular HGB Conc 32.1 GM/DL (32-36); Mean Corpuscular Hemoglobin 28 PG (27-34); Mean Corpuscular Volume 87.9 FL (87-102); Mean Platelet Volume 10.4 FL (9.6-12.0); Monocytes # 0.8 10*3/uL (0.11-0.8); Monocytes % 9.3 % (1.7-12.7); Neutrophils % 60.1 % (38.7-73.9); Platelet Count 119 T/CUMM (130-400); Red Blood Count 2.98 MC/CUMM (3.8-5.5); Red Cell Distribution Width 12.7 % (9.3-17.3); White Blood Count 8.3 T/CUMM (4-12)
[2017-08-21 08:08] LABS: Calcium 8.2 MG/DL (8.5-10.1); Magnesium 2.4 MG/DL (1.8-2.4); Osmolality,Calculated 301.8 MOS/KG (273-304); Potassium 4.1 MMOL/L (3.5-5.1)
[2017-08-21] MEDS ORDERED: NON-FORMULARY MEDICATION (Dexlansoprazole [Dexilant] 60 MG) PO SCH (09:00)
[2017-08-21] MEDS: SODIUM CHLORIDE 0.9% 1,000 ML IV SCH (09:05)
[2017-08-21] MEDS: rOPINIRole 1 MG TABLET PO SCH ×3 (09:47→21:17)
[2017-08-21] MEDS: FERROUS SULFATE 325 MG TABLET PO SCH (09:47)
[2017-08-21] MEDS: CARBIDOPA/LEVODOPA 25-100 MG TABLET PO SCH ×3 (09:48→21:17)
[2017-08-21] MEDS: MULTIVITAMIN (BEROCCA) TABLET PO SCH (09:48)
[2017-08-21] MEDS: DOCUSATE SODIUM 100 MG CAPSULE PO PRN ×2 (09:48→21:17)
[2017-08-21] MEDS: PANTOPRAZOLE 40 MG TABLET PO SCH (09:48)
[2017-08-21] MEDS ORDERED: HEPARIN 10,000 UNIT/10 ML VIAL IV SCH (11:30)
[2017-08-21 15:19] LABS: Apearance,Urine CLEAR (Clear); Bilirubin,Urine Negative (Negative); Blood, Urine Negative (Negative); Glucose,Urine (UA) Negative (Negative); Ketones,Urine Negative (Negative); Nitrite,Urine Negative (Negative); Protein,Urine 100 MG/DL; RBC,Urine 1 /HPF (0-4); Squamous Epithelial Cell,Urine Occasional /HPF (0-10); Urine Color Yellow (Yellow); Urine Specific Gravity 1.013 (1.001-1.035); Urine Urobilinogen < 2.0 EU/DL (0.2-1.0); WBC,Urine <1 /HPF (0-6)
[2017-08-21] MEDS: ALFUZOSIN 10 MG TABLET PO SCH (21:17)
[2017-08-21] MEDS: ATORVASTATIN 40 MG TABLET PO SCH (21:17)
[2017-08-21] MEDS: FESOTERODINE 4 MG TABLET PO SCH (21:18)
[2017-08-21] MEDS: ENOXAPARIN 30 MG/0.3 ML SYRINGE SUBCUT SCH (21:18)
[2017-08-22] MEDS: PANTOPRAZOLE 40 MG TABLET PO SCH (09:59)
[2017-08-22] MEDS: rOPINIRole 1 MG TABLET PO SCH ×2 (09:59→14:22)
[2017-08-22] MEDS: FERROUS SULFATE 325 MG TABLET PO SCH (09:59)
[2017-08-22] MEDS: MULTIVITAMIN (BEROCCA) TABLET PO SCH (09:59)
[2017-08-22] MEDS: CARBIDOPA/LEVODOPA 25-100 MG TABLET PO SCH ×2 (09:59→14:22)
[2017-08-22] MEDS: DOCUSATE SODIUM 100 MG CAPSULE PO PRN (09:59)
[2017-08-22 12:43] VITALS: BP 116/75
== END 2017-08-22 16:30 | disposition home health service (06) | DRG 312 ==
LOC: N.ED 12:05 → SUATTDRO 17:17 → N.EDINP 17:17 → N.2E 18:45
PROVIDERS: ADMIT Internal Medicine; ATTEND Internal Medicine

== ENCOUNTER 2017-08-27 11:27 | Inpatient (IN) ==
[2017-08-27] MEDS ORDERED: HYDROmorphone 2 MG/1 ML VIAL IV STA (11:51)
[2017-08-27] MEDS ORDERED: PANTOPRAZOLE 40 MG VIAL IV STA (11:51)
[2017-08-27] MEDS ORDERED: ONDANSETRON 4 MG/2 ML VIAL IV STA (11:51)
[2017-08-27] MEDS ORDERED: ALUM/MAG/SIMETH/LIDO VISC 1:1 30 ML BOTTLE PO STA (11:51)
[2017-08-27 12:07] LABS: Basophils % 0.1 % (0.0-0.8); Hematocrit 33.4 VOL% (42.0-52.0); Immature Granulocytes % 0.3 %; Immature Granulocytes Absolute 0.04 #; Lymphocytes # 0.8 10*3/uL (1.4-4.0); Mean Corpuscular HGB Conc 32.9 GM/DL (32-36); Mean Corpuscular Hemoglobin 29 PG (27-34); Mean Corpuscular Volume 86.8 FL (87-102); Mean Platelet Volume 10.4 FL (9.6-12.0); Monocytes # 0.8 10*3/uL (0.11-0.8); Monocytes % 6.8 % (1.7-12.7); Neutrophils # 10.3 10*3/uL (1.4-7.4); Neutrophils % 85.8 % (38.7-73.9); Platelet Count 165 T/CUMM (130-400); Red Blood Count 3.85 MC/CUMM (3.8-5.5); Red Cell Distribution Width 13.2 % (9.3-17.3)
[2017-08-27] MEDS ORDERED: PANTOPRAZOLE 40 MG VIAL IV ONE (12:25)
[2017-08-27] MEDS ORDERED: ONDANSETRON 4 MG/2 ML VIAL ONE (12:25)
[2017-08-27] MEDS ORDERED: ALUM/MAG/SIMETH/LIDO VISC 1:1 30 ML BOTTLE PO ONE (12:25)
[2017-08-27 12:35] LABS: Alanine Aminotransferase 16 U/L (16-61); Albumin 3.5 G/DL (3.4-5.0); Alkaline Phosphatase 40 U/L (45-117); Aspartate Amino Transferase 26 U/L (0-37); Calcium 9.2 MG/DL (8.5-10.1); Total Protein 7.5 G/DL (6.4-8.3)
[2017-08-27 12:36] LABS: Amylase 57 U/L (25-115); Blood Urea Nitrogen 70 MG/DL (7-18); Glucose 103 MG/DL (74-106); Lactic Acid 3.3 MMOL/L (0.4-2.0); Magnesium 2.4 MG/DL (1.8-2.4); Potassium 5.8 MMOL/L (3.5-5.1); Sodium 136 MMOL/L (136-145); Troponin I Only < 0.015 NG/ML (0.00-0.045)
[2017-08-27 12:46] LABS: Band Neutrophils 12 % (0-10); Burr Cells Slight; Elliptocytes Few; Hypochromasia 1+; Lymphocytes 7 % (20-55); Microcytosis Slight; Platelet Estimate Normal; Segmented Neutrophils 74 % (50-85); Total Cells Counted 100
[2017-08-27] MEDS ORDERED: metroNIDAZOLE INJ 500 MG in PREMIX 1 EACH IV STA (12:52)
[2017-08-27] MEDS ORDERED: CALCIUM CHLORIDE 1,000 MG/10 ML SYRINGE IV STA (12:52)
[2017-08-27 13:01] LABS: INR 1.1; PT Patient Result 11.7 SECS; Partial Thromboplastin Time 27.9 SECS (0-40)
[2017-08-27] MEDS ORDERED: metroNIDAZOLE 500 MG/100 ML PREMIX IV ONE (13:07)
[2017-08-27] MEDS ORDERED: CALCIUM CHLORIDE 1,000 MG/10 ML SYRINGE IV ONE (13:11)
[2017-08-27] MEDS ORDERED: ONDANSETRON 4 MG/2 ML VIAL IV PRN (14:11)
[2017-08-27] MEDS ORDERED: SODIUM CHLORIDE 0.9% 1,000 ML IV ONE (14:11)
[2017-08-27] MEDS ORDERED: INFLUENZA VIRUS VACCINE 0.5 ML SYRINGE IM ONE (14:29)
[2017-08-27] MEDS: SODIUM CHLORIDE 0.9% 1,000 ML IV SCH ×3 (15:54→23:55)
[2017-08-27] MEDS: PIPERACILLIN/TAZOBACTAM 3,375 MG in SODIUM CHLORIDE 0.9% 100 ML IV SCH (15:54)
[2017-08-27] MEDS: VANCOMYCIN INJ 1,000 MG in SODIUM CHLORIDE 0.9% 250 ML IV SCH (18:10)
[2017-08-27] MEDS ORDERED: LABETALOL 20 MG/4 ML SYRINGE IV ONE (18:22)
[2017-08-27 21:23] LABS: Hepatitis A Ab IgM Quant 0.16 Index; Hepatitis A Ab IgM Result Negative (Negative); Hepatitis B Core IgM Quant 0.14 Index; Hepatitis B Core IgM Result Negative (Negative); Hepatitis B Surface Ag Quant 0.13 Index; Hepatitis B Surface Ag Result Negative (Negative); Hepatitis C Virus Ab Quant 0.11 Index; Hepatitis C Virus Ab Result Negative (Negative)
[2017-08-27] MEDS: rOPINIRole 1 MG TABLET PO SCH (21:30)
[2017-08-27] MEDS: GABAPENTIN 100 MG CAPSULE PO SCH (21:32)
[2017-08-27] MEDS: CARBIDOPA/LEVODOPA 25-100 MG TABLET PO SCH (21:32)
[2017-08-27] MEDS: DICYCLOMINE 10 MG CAPSULE PO SCH (21:32)
[2017-08-27] MEDS: FESOTERODINE 4 MG TABLET PO SCH (21:32)
[2017-08-27] MEDS: metroNIDAZOLE INJ 500 MG in PREMIX 1 EACH IV SCH (21:58)
[2017-08-28] MEDS: PIPERACILLIN/TAZOBACTAM 3,375 MG in SODIUM CHLORIDE 0.9% 100 ML IV SCH ×3 (01:12→21:49)
[2017-08-28 04:40] LABS: Basophils % 0.1 % (0.0-0.8); Hematocrit 27.2 VOL% (42.0-52.0); Hemoglobin 8.9 GM/DL (14.0-18.0); Immature Granulocytes % 0.6 %; Immature Granulocytes Absolute 0.06 #; Lymphocytes # 0.9 10*3/uL (1.4-4.0); Lymphocytes % 8.6 % (21.2-54.2); Mean Corpuscular HGB Conc 32.7 GM/DL (32-36); Mean Corpuscular Hemoglobin 28 PG (27-34); Mean Corpuscular Volume 86.1 FL (87-102); Monocytes # 0.9 10*3/uL (0.11-0.8); Monocytes % 8.4 % (1.7-12.7); Neutrophils # 8.8 10*3/uL (1.4-7.4); Neutrophils % 82.3 % (38.7-73.9); Platelet Count 135 T/CUMM (130-400); Red Blood Count 3.16 MC/CUMM (3.8-5.5); Red Cell Distribution Width 13.1 % (9.3-17.3); White Blood Count 10.6 T/CUMM (4-12)
[2017-08-28 05:12] LABS: Albumin 2.7 G/DL (3.4-5.0); Bilirubin,Total 1.3 MG/DL (0.2-1.0); Calcium 8.7 MG/DL (8.5-10.1); Osmolality,Calculated 287.7 MOS/KG (273-304); Potassium 5.1 MMOL/L (3.5-5.1); Total Protein 6.1 G/DL (6.4-8.3)
[2017-08-28 05:22] LABS: Band Neutrophils 22 % (0-10); Lymphocytes 14 % (20-55); Metamyelocytes 1 %; Ovalocytes Few; Platelet Estimate Normal; Promyelocytes 1 %; Segmented Neutrophils 52 % (50-85); Total Cells Counted 100
[2017-08-28] MEDS: metroNIDAZOLE INJ 500 MG in PREMIX 1 EACH IV SCH ×3 (05:57→22:40)
[2017-08-28] MEDS: DICYCLOMINE 10 MG CAPSULE PO SCH ×3 (09:01→21:50)
[2017-08-28] MEDS: rOPINIRole 1 MG TABLET PO SCH ×3 (09:01→21:50)
[2017-08-28] MEDS: [UNRECOGNIZED DRUG - OTHER] PO SCH (09:02)
[2017-08-28] MEDS: PRO RENAL PO SCH (09:02)
[2017-08-28] MEDS: CARBIDOPA/LEVODOPA 25-100 MG TABLET PO SCH ×3 (09:02→21:50)
[2017-08-28] MEDS: PANTOPRAZOLE 40 MG TABLET PO SCH (09:02)
[2017-08-28] MEDS: SODIUM CHLORIDE 0.9% 1,000 ML IV SCH ×4 (11:43→22:41)
[2017-08-28] MEDS: CARVEDILOL 6.25 MG TABLET PO SCH ×2 (12:15→21:51)
[2017-08-28] MEDS ORDERED: HEPARIN 10,000 UNIT/10 ML VIAL IV PRN (14:53)
[2017-08-28] MEDS: VANCOMYCIN INJ 1,000 MG in SODIUM CHLORIDE 0.9% 250 ML IV SCH (18:28)
[2017-08-28] MEDS: MORPHINE 2 MG/1 ML SYRINGE IV PRN (18:28)
[2017-08-28] MEDS: FESOTERODINE 4 MG TABLET PO SCH (21:50)
[2017-08-28] MEDS: GABAPENTIN 100 MG CAPSULE PO SCH (21:50)
[2017-08-29 04:58] LABS: Basophils % 0.2 % (0.0-0.8); Eosinophils % 0.1 % (0.00-10.9); Hematocrit 24.5 VOL% (42.0-52.0); Hemoglobin 7.8 GM/DL (14.0-18.0); Immature Granulocytes % 0.3 %; Immature Granulocytes Absolute 0.04 #; Lymphocytes # 0.9 10*3/uL (1.4-4.0); Lymphocytes % 7.3 % (21.2-54.2); Mean Corpuscular HGB Conc 31.8 GM/DL (32-36); Mean Corpuscular Hemoglobin 28 PG (27-34); Mean Corpuscular Volume 89.1 FL (87-102); Mean Platelet Volume 10.7 FL (9.6-12.0); Monocytes # 0.9 10*3/uL (0.11-0.8); Monocytes % 6.8 % (1.7-12.7); Neutrophils # 10.6 10*3/uL (1.4-7.4); Neutrophils % 85.3 % (38.7-73.9); Platelet Count 147 T/CUMM (130-400); Red Blood Count 2.75 MC/CUMM (3.8-5.5); Red Cell Distribution Width 13.3 % (9.3-17.3); White Blood Count 12.5 T/CUMM (4-12)
[2017-08-29 05:26] LABS: Calcium 8.5 MG/DL (8.5-10.1); Magnesium 2.1 MG/DL (1.8-2.4); Osmolality,Calculated 285.5 MOS/KG (273-304); Potassium 4.4 MMOL/L (3.5-5.1)
[2017-08-29 05:36] LABS: Acanthocytes Few; Hypochromasia 1+; Microcytosis 1+; Ovalocytes Few; Platelet Estimate Adequate
[2017-08-29] MEDS: metroNIDAZOLE INJ 500 MG in PREMIX 1 EACH IV SCH ×3 (05:52→21:34)
[2017-08-29] MEDS: SODIUM CHLORIDE 0.9% 1,000 ML IV SCH ×2 (08:24→15:30)
[2017-08-29] MEDS: PIPERACILLIN/TAZOBACTAM 3,375 MG in SODIUM CHLORIDE 0.9% 100 ML IV SCH ×2 (08:42→20:50)
[2017-08-29] MEDS: ALBUTEROL/IPRATROPIUM 3 ML NEB RESP TX PRN (08:47)
[2017-08-29] MEDS ORDERED: SIMETHICONE CHEW 125 MG TABLET PO SCH (09:30)
[2017-08-29] MEDS: [UNRECOGNIZED DRUG - OTHER] PO SCH (09:51)
[2017-08-29] MEDS: PRO RENAL PO SCH (09:51)
[2017-08-29] MEDS: PANTOPRAZOLE 40 MG TABLET PO SCH (09:52)
[2017-08-29] MEDS: CARVEDILOL 6.25 MG TABLET PO SCH ×2 (09:52→20:51)
[2017-08-29] MEDS: DICYCLOMINE 10 MG CAPSULE PO SCH ×3 (09:52→20:51)
[2017-08-29] MEDS: rOPINIRole 1 MG TABLET PO SCH ×3 (09:52→20:50)
[2017-08-29] MEDS: CARBIDOPA/LEVODOPA 25-100 MG TABLET PO SCH ×3 (09:52→20:51)
[2017-08-29] MEDS ORDERED: EPOETIN ALFA 10,000 UNIT/1 ML VIAL SUBCUT ONE (11:00)
[2017-08-29 14:39] LABS: ABG Base Excess -1.4 MMOL/L (-2.5-2.5); ABG HCO3 23.2 MMOL/L (20-26); ABG Oxygen Saturation 90.9 % (95-100); ABG PCO2 42.5 MM HG (35-48); ABG PO2 63.5 MM HG (80-95); ABG TCO2 22.5 MMOL/L (23-27); Allen Test Positive
[2017-08-29] MEDS: VANCOMYCIN INJ 1,000 MG in SODIUM CHLORIDE 0.9% 250 ML IV SCH (17:40)
[2017-08-29] MEDS: FESOTERODINE 4 MG TABLET PO SCH (20:50)
[2017-08-29] MEDS: GABAPENTIN 100 MG CAPSULE PO SCH (20:50)
[2017-08-30] MEDS: SODIUM CHLORIDE 0.9% 1,000 ML IV SCH ×3 (01:45→17:15)
[2017-08-30 03:53] LABS: Basophils % 0.1 % (0.0-0.8); Eosinophils # 0.1 10*3/uL (0.0-0.87); Eosinophils % 0.5 % (0.00-10.9); Hematocrit 26.6 VOL% (42.0-52.0); Hemoglobin 8.6 GM/DL (14.0-18.0); Immature Granulocytes % 0.9 %; Immature Granulocytes Absolute 0.13 #; Lymphocytes # 0.9 10*3/uL (1.4-4.0); Lymphocytes % 5.9 % (21.2-54.2); Mean Corpuscular HGB Conc 32.3 GM/DL (32-36); Mean Corpuscular Hemoglobin 28 PG (27-34); Mean Corpuscular Volume 86.9 FL (87-102); Mean Platelet Volume 10.5 FL (9.6-12.0); Monocytes % 6.5 % (1.7-12.7); Neutrophils # 12.6 10*3/uL (1.4-7.4); Neutrophils % 86.1 % (38.7-73.9); Platelet Count 168 T/CUMM (130-400); Red Blood Count 3.06 MC/CUMM (3.8-5.5); Red Cell Distribution Width 13.1 % (9.3-17.3); White Blood Count 14.7 T/CUMM (4-12)
[2017-08-30 04:20] LABS: Calcium 8.3 MG/DL (8.5-10.1); Magnesium 2.1 MG/DL (1.8-2.4); Potassium 3.8 MMOL/L (3.5-5.1)
[2017-08-30 04:58] LABS: Band Neutrophils 6 % (0-10); Lymphocytes 9 % (20-55); Segmented Neutrophils 84 % (50-85); Total Cells Counted 100
[2017-08-30 04:59] LABS: Platelet Estimate Normal
[2017-08-30] MEDS: metroNIDAZOLE INJ 500 MG in PREMIX 1 EACH IV SCH ×3 (05:19→20:13)
[2017-08-30] MEDS: MORPHINE 2 MG/1 ML SYRINGE IV PRN ×2 (07:49→15:10)
[2017-08-30] MEDS: PIPERACILLIN/TAZOBACTAM 3,375 MG in SODIUM CHLORIDE 0.9% 100 ML IV SCH ×2 (07:49→20:12)
[2017-08-30] MEDS: rOPINIRole 1 MG TABLET PO SCH ×3 (09:26→20:12)
[2017-08-30] MEDS: DICYCLOMINE 10 MG CAPSULE PO SCH ×3 (09:26→20:12)
[2017-08-30] MEDS: PANTOPRAZOLE 40 MG TABLET PO SCH (09:27)
[2017-08-30] MEDS: [UNRECOGNIZED DRUG - OTHER] PO SCH (09:27)
[2017-08-30] MEDS: CARBIDOPA/LEVODOPA 25-100 MG TABLET PO SCH ×3 (09:27→20:12)
[2017-08-30] MEDS: PRO RENAL PO SCH (09:27)
[2017-08-30] MEDS: CARVEDILOL 6.25 MG TABLET PO SCH ×2 (09:28→20:12)
[2017-08-30] MEDS: VANCOMYCIN INJ 1,000 MG in SODIUM CHLORIDE 0.9% 250 ML IV SCH (17:16)
[2017-08-30] MEDS: FESOTERODINE 4 MG TABLET PO SCH (20:12)
[2017-08-30] MEDS: GABAPENTIN 100 MG CAPSULE PO SCH (20:13)
[2017-08-31 04:41] LABS: Basophils % 0.3 % (0.0-0.8); Eosinophils # 0.2 10*3/uL (0.0-0.87); Eosinophils % 1.7 % (0.00-10.9); Hematocrit 25.6 VOL% (42.0-52.0); Hemoglobin 8.1 GM/DL (14.0-18.0); Immature Granulocytes % 3.4 %; Immature Granulocytes Absolute 0.41 #; Lymphocytes # 1.4 10*3/uL (1.4-4.0); Lymphocytes % 11.7 % (21.2-54.2); Mean Corpuscular HGB Conc 31.6 GM/DL (32-36); Mean Corpuscular Hemoglobin 28 PG (27-34); Mean Corpuscular Volume 89.5 FL (87-102); Mean Platelet Volume 9.9 FL (9.6-12.0); Monocytes # 1.1 10*3/uL (0.11-0.8); Monocytes % 8.8 % (1.7-12.7); Neutrophils # 8.9 10*3/uL (1.4-7.4); Neutrophils % 74.1 % (38.7-73.9); Platelet Count 170 T/CUMM (130-400); Red Blood Count 2.86 MC/CUMM (3.8-5.5); Red Cell Distribution Width 13.3 % (9.3-17.3)
[2017-08-31 05:07] LABS: Lactic Acid 0.9 MMOL/L (0.4-2.0)
[2017-08-31 05:08] LABS: Alanine Aminotransferase < 9 U/L (16-61); Albumin 2.2 G/DL (3.4-5.0); Alkaline Phosphatase 38 U/L (45-117); Aspartate Amino Transferase 30 U/L (0-37); Blood Urea Nitrogen 47 MG/DL (7-18); Calcium 7.9 MG/DL (8.5-10.1); Glucose 68 MG/DL (74-106); Osmolality,Calculated 295.8 MOS/KG (273-304); Potassium 4.1 MMOL/L (3.5-5.1); Sodium 144 MMOL/L (136-145); Total Protein 5.5 G/DL (6.4-8.3)
[2017-08-31] MEDS: metroNIDAZOLE INJ 500 MG in PREMIX 1 EACH IV SCH ×2 (05:32→20:57)
[2017-08-31] MEDS: SODIUM CHLORIDE 0.9% 1,000 ML IV SCH (07:30)
[2017-08-31] MEDS: PIPERACILLIN/TAZOBACTAM 3,375 MG in SODIUM CHLORIDE 0.9% 100 ML IV SCH (09:45)
[2017-08-31] MEDS: DICYCLOMINE 10 MG CAPSULE PO SCH ×3 (09:46→23:57)
[2017-08-31] MEDS: CARBIDOPA/LEVODOPA 25-100 MG TABLET PO SCH ×3 (09:46→23:56)
[2017-08-31] MEDS: rOPINIRole 1 MG TABLET PO SCH ×3 (09:46→23:56)
[2017-08-31] MEDS: PANTOPRAZOLE 40 MG TABLET PO SCH (09:47)
[2017-08-31] MEDS: CARVEDILOL 6.25 MG TABLET PO SCH ×2 (09:47→23:56)
[2017-08-31] MEDS: PRO RENAL PO SCH (09:48)
[2017-08-31] MEDS: [UNRECOGNIZED DRUG - OTHER] PO SCH (09:48)
[2017-08-31] MEDS: FESOTERODINE 4 MG TABLET PO SCH (23:56)
[2017-08-31] MEDS: GABAPENTIN 100 MG CAPSULE PO SCH (23:56)
[2017-08-31] MEDS: DEXTROSE 5% NACL 0.9% 1,000 ML IV SCH (23:57)
[2017-09-01] MEDS: VANCOMYCIN INJ 1,000 MG in SODIUM CHLORIDE 0.9% 250 ML IV SCH ×2 (00:43→17:24)
[2017-09-01] MEDS: metroNIDAZOLE INJ 500 MG in PREMIX 1 EACH IV SCH ×4 (01:57→20:14)
[2017-09-01] MEDS: ZINC OXIDE PASTE 113 GM TUBE TOP SCH ×3 (01:57→21:12)
[2017-09-01] MEDS: PIPERACILLIN/TAZOBACTAM 3,375 MG in SODIUM CHLORIDE 0.9% 100 ML IV SCH ×3 (03:02→21:18)
[2017-09-01 06:44] LABS: Basophils % 0.3 % (0.0-0.8); Eosinophils # 0.2 10*3/uL (0.0-0.87); Eosinophils % 1.5 % (0.00-10.9); Hematocrit 25.6 VOL% (42.0-52.0); Hemoglobin 7.9 GM/DL (14.0-18.0); Immature Granulocytes Absolute 0.69 #; Lymphocytes # 1.6 10*3/uL (1.4-4.0); Lymphocytes % 16.2 % (21.2-54.2); Mean Corpuscular HGB Conc 30.9 GM/DL (32-36); Mean Corpuscular Hemoglobin 28 PG (27-34); Mean Corpuscular Volume 89.5 FL (87-102); Mean Platelet Volume 9.7 FL (9.6-12.0); Monocytes % 10.1 % (1.7-12.7); Neutrophils # 6.4 10*3/uL (1.4-7.4); Neutrophils % 64.9 % (38.7-73.9); Platelet Count 165 T/CUMM (130-400); Red Blood Count 2.86 MC/CUMM (3.8-5.5); Red Cell Distribution Width 13.2 % (9.3-17.3); White Blood Count 9.9 T/CUMM (4-12)
[2017-09-01 07:29] LABS: Band Neutrophils 3 % (0-10); Lymphocytes 17 % (20-55); Nucleated Red Blood Cells 1 (0-5); Segmented Neutrophils 80 % (50-85); Total Cells Counted 100
[2017-09-01 07:30] LABS: Burr Cells Few; Poikilocytosis Slight
[2017-09-01] MEDS: DICYCLOMINE 10 MG CAPSULE PO SCH ×3 (09:45→21:09)
[2017-09-01] MEDS: PANTOPRAZOLE 40 MG TABLET PO SCH (09:45)
[2017-09-01] MEDS: rOPINIRole 1 MG TABLET PO SCH ×3 (09:52→21:10)
[2017-09-01] MEDS: CARBIDOPA/LEVODOPA 25-100 MG TABLET PO SCH ×3 (09:52→21:09)
[2017-09-01] MEDS: [UNRECOGNIZED DRUG - OTHER] PO SCH (10:26)
[2017-09-01] MEDS: PRO RENAL PO SCH (10:26)
[2017-09-01] MEDS: CARVEDILOL 6.25 MG TABLET PO SCH ×2 (10:27→21:10)
[2017-09-01] MEDS ORDERED: SKIN HEALING OINT (AQUAPHOR) 50 GM TUBE TOP PRN (15:17)
[2017-09-01] MEDS: DEXTROSE 5% NACL 0.9% 1,000 ML IV SCH (16:50)
[2017-09-01] MEDS: FESOTERODINE 4 MG TABLET PO SCH (21:10)
[2017-09-01] MEDS: GABAPENTIN 100 MG CAPSULE PO SCH (21:11)
[2017-09-02] MEDS: metroNIDAZOLE INJ 500 MG in PREMIX 1 EACH IV SCH ×3 (04:09→20:07)
[2017-09-02] MEDS: PIPERACILLIN/TAZOBACTAM 3,375 MG in SODIUM CHLORIDE 0.9% 100 ML IV SCH ×2 (08:29→20:07)
[2017-09-02] MEDS: rOPINIRole 1 MG TABLET PO SCH ×3 (08:29→20:07)
[2017-09-02] MEDS: ZINC OXIDE PASTE 113 GM TUBE TOP SCH ×2 (08:30→20:07)
[2017-09-02] MEDS: CARVEDILOL 6.25 MG TABLET PO SCH ×2 (08:30→20:07)
[2017-09-02] MEDS: PRO RENAL PO SCH (08:30)
[2017-09-02] MEDS: PANTOPRAZOLE 40 MG TABLET PO SCH (08:30)
[2017-09-02] MEDS: DICYCLOMINE 10 MG CAPSULE PO SCH ×3 (08:30→20:06)
[2017-09-02] MEDS: [UNRECOGNIZED DRUG - OTHER] PO SCH (08:30)
[2017-09-02] MEDS: CARBIDOPA/LEVODOPA 25-100 MG TABLET PO SCH ×3 (08:30→20:06)
[2017-09-02 14:14] LABS: Hematocrit 25.8 VOL% (42.0-52.0)
[2017-09-02] MEDS: DEXTROSE 5% NACL 0.9% 1,000 ML IV SCH (15:45)
[2017-09-02] MEDS ORDERED: VANCOMYCIN INJ 750 MG in SODIUM CHLORIDE 0.9% 150 ML IV PRN (18:48)
[2017-09-02] MEDS: FESOTERODINE 4 MG TABLET PO SCH (20:07)
[2017-09-02] MEDS: GABAPENTIN 100 MG CAPSULE PO SCH (20:07)
[2017-09-03] MEDS: metroNIDAZOLE INJ 500 MG in PREMIX 1 EACH IV SCH (04:30)
[2017-09-03 06:52] LABS: Basophils % 0.3 % (0.0-0.8); Eosinophils # 0.1 10*3/uL (0.0-0.87); Eosinophils % 1.1 % (0.00-10.9); Hematocrit 24.9 VOL% (42.0-52.0); Hemoglobin 7.7 GM/DL (14.0-18.0); Immature Granulocytes % 6.2 %; Immature Granulocytes Absolute 0.71 #; Lymphocytes # 1.9 10*3/uL (1.4-4.0); Lymphocytes % 16.2 % (21.2-54.2); Mean Corpuscular HGB Conc 30.9 GM/DL (32-36); Mean Corpuscular Hemoglobin 28 PG (27-34); Mean Corpuscular Volume 90.2 FL (87-102); Monocytes # 1.2 10*3/uL (0.11-0.8); Monocytes % 10.2 % (1.7-12.7); Neutrophils # 7.6 10*3/uL (1.4-7.4); Platelet Count 166 T/CUMM (130-400); Red Blood Count 2.76 MC/CUMM (3.8-5.5); Red Cell Distribution Width 13.5 % (9.3-17.3); White Blood Count 11.5 T/CUMM (4-12)
[2017-09-03 07:19] LABS: Calcium 7.5 MG/DL (8.5-10.1); Magnesium 2.1 MG/DL (1.8-2.4); Osmolality,Calculated 285.3 MOS/KG (273-304); Potassium 3.5 MMOL/L (3.5-5.1)
[2017-09-03 07:27] LABS: Hypochromasia 1+; Lymphocytes 9 % (20-55); Platelet Estimate Adequate; Segmented Neutrophils 79 % (50-85); Total Cells Counted 100
[2017-09-03] MEDS: VANCOMYCIN INJ 1,000 MG in SODIUM CHLORIDE 0.9% 250 ML IV SCH (07:32)
[2017-09-03] MEDS: PIPERACILLIN/TAZOBACTAM 3,375 MG in SODIUM CHLORIDE 0.9% 100 ML IV SCH (08:44)
[2017-09-03] MEDS: DICYCLOMINE 10 MG CAPSULE PO SCH ×3 (08:45→20:20)
[2017-09-03] MEDS: PRO RENAL PO SCH (08:45)
[2017-09-03] MEDS: ZINC OXIDE PASTE 113 GM TUBE TOP SCH ×2 (08:45→20:21)
[2017-09-03] MEDS: CARBIDOPA/LEVODOPA 25-100 MG TABLET PO SCH ×3 (08:45→20:20)
[2017-09-03] MEDS: [UNRECOGNIZED DRUG - OTHER] PO SCH (08:45)
[2017-09-03] MEDS: rOPINIRole 1 MG TABLET PO SCH ×3 (08:45→20:21)
[2017-09-03] MEDS: PANTOPRAZOLE 40 MG TABLET PO SCH (08:45)
[2017-09-03] MEDS: CARVEDILOL 6.25 MG TABLET PO SCH ×2 (08:45→20:21)
[2017-09-03] MEDS: DEXTROSE 5% NACL 0.9% 1,000 ML IV SCH (15:31)
[2017-09-03] MEDS: CIPROFLOXACIN 500 MG TABLET PO SCH (17:17)
[2017-09-03] MEDS: metroNIDAZOLE 500 MG TABLET PO SCH (20:20)
[2017-09-03] MEDS: GABAPENTIN 100 MG CAPSULE PO SCH (20:21)
[2017-09-03] MEDS: FESOTERODINE 4 MG TABLET PO SCH (20:21)
[2017-09-03] MEDS ORDERED: AMOXICILLIN/CLAV XR 1000 MG TABLET PO SCH (21:00)
[2017-09-04] MEDS: DICYCLOMINE 10 MG CAPSULE PO SCH ×3 (08:01→20:21)
[2017-09-04] MEDS: CARBIDOPA/LEVODOPA 25-100 MG TABLET PO SCH ×3 (08:02→20:21)
[2017-09-04] MEDS: [UNRECOGNIZED DRUG - OTHER] PO SCH (08:02)
[2017-09-04] MEDS: rOPINIRole 1 MG TABLET PO SCH ×3 (08:02→20:22)
[2017-09-04] MEDS: CIPROFLOXACIN 500 MG TABLET PO SCH (08:02)
[2017-09-04] MEDS: PANTOPRAZOLE 40 MG TABLET PO SCH (08:02)
[2017-09-04] MEDS: ZINC OXIDE PASTE 113 GM TUBE TOP SCH ×2 (08:02→20:22)
[2017-09-04] MEDS: PRO RENAL PO SCH (08:02)
[2017-09-04] MEDS: metroNIDAZOLE 500 MG TABLET PO SCH ×3 (08:02→20:21)
[2017-09-04] MEDS: CARVEDILOL 6.25 MG TABLET PO SCH ×2 (08:03→20:21)
[2017-09-04] MEDS ORDERED: SODIUM CHLORIDE 0.9% 1,000 ML IV PRN (08:54)
[2017-09-04] MEDS: DEXTROSE 5% NACL 0.9% 1,000 ML IV SCH (15:53)
[2017-09-04] MEDS: FESOTERODINE 4 MG TABLET PO SCH (20:19)
[2017-09-04] MEDS: GABAPENTIN 100 MG CAPSULE PO SCH (20:21)
[2017-09-05 06:18] LABS: Basophils % 0.2 % (0.0-0.8); Eosinophils # 0.1 10*3/uL (0.0-0.87); Eosinophils % 0.9 % (0.00-10.9); Hematocrit 29.7 VOL% (42.0-52.0); Hemoglobin 9.3 GM/DL (14.0-18.0); Immature Granulocytes % 3.8 %; Lymphocytes % 18.8 % (21.2-54.2); Mean Corpuscular HGB Conc 31.3 GM/DL (32-36); Mean Corpuscular Hemoglobin 28 PG (27-34); Mean Platelet Volume 9.8 FL (9.6-12.0); Monocytes # 0.9 10*3/uL (0.11-0.8); Monocytes % 8.4 % (1.7-12.7); Neutrophils # 7.2 10*3/uL (1.4-7.4); Neutrophils % 67.9 % (38.7-73.9); Platelet Count 122 T/CUMM (130-400); Red Cell Distribution Width 13.8 % (9.3-17.3); White Blood Count 10.6 T/CUMM (4-12)
[2017-09-05 06:26] LABS: Alanine Aminotransferase < 9 U/L (16-61); Albumin 2.3 G/DL (3.4-5.0); Alkaline Phosphatase 37 U/L (45-117); Aspartate Amino Transferase 39 U/L (0-37); Blood Urea Nitrogen 25 MG/DL (7-18); Calcium 7.4 MG/DL (8.5-10.1); Glucose 82 MG/DL (74-106); Phosphorous 4.5 MG/DL (2.5-4.9); Potassium 3.7 MMOL/L (3.5-5.1); Sodium 136 MMOL/L (136-145); Total Protein 5.7 G/DL (6.4-8.3)
[2017-09-05 07:34] LABS: Band Neutrophils 2 % (0-10); Hypochromasia 1+; Lymphocytes 17 % (20-55); Platelet Estimate Normal; Segmented Neutrophils 73 % (50-85); Total Cells Counted 100
[2017-09-05 07:35] LABS: Burr Cells Slight; Giant Platelets Few; Microcytosis Slight; Ovalocytes Slight
[2017-09-05] MEDS: rOPINIRole 1 MG TABLET PO SCH ×4 (09:27→23:23)
[2017-09-05] MEDS: CIPROFLOXACIN 500 MG TABLET PO SCH (09:27)
[2017-09-05] MEDS: DICYCLOMINE 10 MG CAPSULE PO SCH ×4 (09:27→23:22)
[2017-09-05] MEDS: CARBIDOPA/LEVODOPA 25-100 MG TABLET PO SCH ×4 (09:27→23:23)
[2017-09-05] MEDS: CARVEDILOL 6.25 MG TABLET PO SCH ×2 (09:28→23:22)
[2017-09-05] MEDS: metroNIDAZOLE 500 MG TABLET PO SCH ×4 (09:28→23:22)
[2017-09-05] MEDS: PANTOPRAZOLE 40 MG TABLET PO SCH (09:28)
[2017-09-05] MEDS: [UNRECOGNIZED DRUG - OTHER] PO SCH (09:29)
[2017-09-05] MEDS: PRO RENAL PO SCH (09:29)
[2017-09-05] MEDS: ALBUTEROL/IPRATROPIUM 3 ML NEB RESP TX PRN (18:58)
[2017-09-05] MEDS ORDERED: ACETAMINOPHEN 325 MG TABLET PO PRN (19:17)
[2017-09-05] MEDS ORDERED: FUROSEMIDE 40 MG/4 ML VIAL IV ONE (19:40)
[2017-09-05] MEDS ORDERED: ALBUTEROL/IPRATROPIUM 3 ML NEB RESP TX PRN (19:41)
[2017-09-05 19:51] LABS: Basophils % 0.2 % (0.0-0.8); Eosinophils % 0.4 % (0.00-10.9); Hematocrit 30.1 VOL% (42.0-52.0); Hemoglobin 9.4 GM/DL (14.0-18.0); Immature Granulocytes % 2.2 %; Immature Granulocytes Absolute 0.23 #; Lymphocytes # 1.6 10*3/uL (1.4-4.0); Lymphocytes % 15.4 % (21.2-54.2); Mean Corpuscular HGB Conc 31.2 GM/DL (32-36); Mean Corpuscular Hemoglobin 28 PG (27-34); Mean Corpuscular Volume 89.9 FL (87-102); Mean Platelet Volume 9.4 FL (9.6-12.0); Monocytes # 0.7 10*3/uL (0.11-0.8); Monocytes % 7.1 % (1.7-12.7); Neutrophils # 7.8 10*3/uL (1.4-7.4); Neutrophils % 74.7 % (38.7-73.9); Platelet Count 135 T/CUMM (130-400); Red Blood Count 3.35 MC/CUMM (3.8-5.5); Red Cell Distribution Width 13.8 % (9.3-17.3); White Blood Count 10.4 T/CUMM (4-12)
[2017-09-05] MEDS: ACETAMINOPHEN 650 MG SUPP RECTAL PRN (20:12)
[2017-09-05 20:13] LABS: Alanine Aminotransferase < 6 U/L (16-61); Albumin 2.6 G/DL (3.4-5.0); Alkaline Phosphatase 39 U/L (45-117); Aspartate Amino Transferase 30 U/L (0-37); Blood Urea Nitrogen 34 MG/DL (7-18); Calcium 7.4 MG/DL (8.5-10.1); Glucose 120 MG/DL (74-106); Potassium 3.7 MMOL/L (3.5-5.1); Sodium 136 MMOL/L (136-145); Total Protein 6.1 G/DL (6.4-8.3)
[2017-09-05] MEDS: PIPERACILLIN/TAZOBACTAM 3,375 MG in SODIUM CHLORIDE 0.9% 100 ML IV SCH (21:26)
[2017-09-05] MEDS: FESOTERODINE 4 MG TABLET PO SCH ×2 (21:28→23:23)
[2017-09-05] MEDS: GABAPENTIN 100 MG CAPSULE PO SCH ×2 (21:29→23:22)
[2017-09-05] MEDS: ZINC OXIDE PASTE 113 GM TUBE TOP SCH (21:46)
[2017-09-05 21:55] LABS: Apearance,Urine CLOUDY (Clear); Bilirubin,Urine Negative (Negative); Blood, Urine Moderate mg/dL (Negative); Glucose,Urine (UA) Negative (Negative); Hyaline Casts,Urine 4 /LPF (0-3); Ketones,Urine 5 mg/dL (Negative); Nitrite,Urine Negative (Negative); Protein,Urine 100 MG/DL; RBC,Urine 5 /HPF (0-4); Urine Color Amber (Yellow); Urine Urobilinogen < 2.0 EU/DL (0.2-1.0); WBC,Urine 4 /HPF (0-6)
[2017-09-05] MEDS: ALBUTEROL/IPRATROPIUM 3 ML NEB RESP TX SCH (23:06)
[2017-09-06] MEDS: ALBUTEROL/IPRATROPIUM 3 ML NEB RESP TX SCH ×6 (03:13→23:53)
[2017-09-06] MEDS: ACETAMINOPHEN 650 MG SUPP RECTAL PRN ×2 (04:28→17:22)
[2017-09-06] MEDS: ZINC OXIDE PASTE 113 GM TUBE TOP SCH ×3 (07:16→20:58)
[2017-09-06] MEDS: PIPERACILLIN/TAZOBACTAM 3,375 MG in SODIUM CHLORIDE 0.9% 100 ML IV SCH ×2 (08:57→20:56)
[2017-09-06] MEDS: CARVEDILOL 6.25 MG TABLET PO SCH ×2 (09:03→20:58)
[2017-09-06] MEDS: PANTOPRAZOLE 40 MG TABLET PO SCH (09:03)
[2017-09-06] MEDS: rOPINIRole 1 MG TABLET PO SCH ×3 (09:03→20:57)
[2017-09-06] MEDS: CARBIDOPA/LEVODOPA 25-100 MG TABLET PO SCH ×3 (09:03→20:58)
[2017-09-06] MEDS: DICYCLOMINE 10 MG CAPSULE PO SCH ×3 (09:03→20:57)
[2017-09-06] MEDS: metroNIDAZOLE 500 MG TABLET PO SCH ×3 (09:04→20:57)
[2017-09-06] MEDS: [UNRECOGNIZED DRUG - OTHER] PO SCH (10:58)
[2017-09-06] MEDS: PRO RENAL PO SCH (10:58)
[2017-09-06] MEDS: GABAPENTIN 100 MG CAPSULE PO SCH (20:58)
[2017-09-06] MEDS: FESOTERODINE 4 MG TABLET PO SCH (20:58)
[2017-09-07] MEDS: ACETAMINOPHEN 650 MG SUPP RECTAL PRN (00:08)
[2017-09-07] MEDS: ALBUTEROL/IPRATROPIUM 3 ML NEB RESP TX SCH ×5 (02:51→19:00)
[2017-09-07] MEDS: PIPERACILLIN/TAZOBACTAM 3,375 MG in SODIUM CHLORIDE 0.9% 100 ML IV SCH ×2 (09:27→20:16)
[2017-09-07] MEDS: CARVEDILOL 6.25 MG TABLET PO SCH ×2 (09:29→20:18)
[2017-09-07] MEDS: metroNIDAZOLE 500 MG TABLET PO SCH ×3 (09:29→20:18)
[2017-09-07] MEDS: CARBIDOPA/LEVODOPA 25-100 MG TABLET PO SCH ×3 (09:29→20:17)
[2017-09-07] MEDS: ZINC OXIDE PASTE 113 GM TUBE TOP SCH ×2 (09:29→20:27)
[2017-09-07] MEDS: DICYCLOMINE 10 MG CAPSULE PO SCH ×3 (09:29→22:06)
[2017-09-07] MEDS: rOPINIRole 1 MG TABLET PO SCH ×3 (09:29→20:17)
[2017-09-07] MEDS: [UNRECOGNIZED DRUG - OTHER] PO SCH (09:29)
[2017-09-07] MEDS: PRO RENAL PO SCH (09:29)
[2017-09-07] MEDS: PANTOPRAZOLE 40 MG TABLET PO SCH (09:29)
[2017-09-07] MEDS: FESOTERODINE 4 MG TABLET PO SCH (20:17)
[2017-09-07] MEDS: GABAPENTIN 100 MG CAPSULE PO SCH (20:18)
[2017-09-08] MEDS: ALBUTEROL/IPRATROPIUM 3 ML NEB RESP TX SCH ×4 (00:40→20:25)
[2017-09-08 06:19] LABS: Basophils % 0.3 % (0.0-0.8); Eosinophils # 0.1 10*3/uL (0.0-0.87); Eosinophils % 0.8 % (0.00-10.9); Hematocrit 25.8 VOL% (42.0-52.0); Hemoglobin 8.1 GM/DL (14.0-18.0); Immature Granulocytes % 0.6 %; Immature Granulocytes Absolute 0.05 #; Lymphocytes # 1.4 10*3/uL (1.4-4.0); Lymphocytes % 17.5 % (21.2-54.2); Mean Corpuscular HGB Conc 31.4 GM/DL (32-36); Mean Corpuscular Hemoglobin 28 PG (27-34); Mean Corpuscular Volume 88.7 FL (87-102); Mean Platelet Volume 10.1 FL (9.6-12.0); Monocytes # 0.8 10*3/uL (0.11-0.8); Monocytes % 10.4 % (1.7-12.7); Neutrophils # 5.5 10*3/uL (1.4-7.4); Neutrophils % 70.4 % (38.7-73.9); Platelet Count 150 T/CUMM (130-400); Red Blood Count 2.91 MC/CUMM (3.8-5.5); Red Cell Distribution Width 13.9 % (9.3-17.3); White Blood Count 7.8 T/CUMM (4-12)
[2017-09-08 06:42] LABS: Band Neutrophils 5 % (0-10); Eosinophils 2 % (0-10); Hypochromasia 1+; Lymphocytes 14 % (20-55); Ovalocytes Slight; Platelet Estimate Normal; Segmented Neutrophils 70 % (50-85); Total Cells Counted 100
[2017-09-08 06:43] LABS: Giant Platelets Few; Microcytosis Slight
[2017-09-08 07:01] LABS: Calcium 6.9 MG/DL (8.5-10.1); Osmolality,Calculated 280.7 MOS/KG (273-304); Potassium 3.5 MMOL/L (3.5-5.1)
[2017-09-08] MEDS: rOPINIRole 1 MG TABLET PO SCH ×3 (09:17→22:52)
[2017-09-08] MEDS: DICYCLOMINE 10 MG CAPSULE PO SCH ×3 (09:17→22:51)
[2017-09-08] MEDS: CARBIDOPA/LEVODOPA 25-100 MG TABLET PO SCH ×3 (09:18→22:52)
[2017-09-08] MEDS: PRO RENAL PO SCH (09:18)
[2017-09-08] MEDS: PIPERACILLIN/TAZOBACTAM 3,375 MG in SODIUM CHLORIDE 0.9% 100 ML IV SCH (09:18)
[2017-09-08] MEDS: [UNRECOGNIZED DRUG - OTHER] PO SCH (09:18)
[2017-09-08] MEDS: CARVEDILOL 6.25 MG TABLET PO SCH ×2 (09:18→22:51)
[2017-09-08] MEDS: PANTOPRAZOLE 40 MG TABLET PO SCH (09:18)
[2017-09-08] MEDS: metroNIDAZOLE 500 MG TABLET PO SCH (09:18)
[2017-09-08] MEDS: ZINC OXIDE PASTE 113 GM TUBE TOP SCH ×2 (09:18→22:51)
[2017-09-08] MEDS ORDERED: VANCOMYCIN INJ 1,500 MG in SODIUM CHLORIDE 0.9% 500 ML IV ONE (19:00)
[2017-09-08] MEDS: GABAPENTIN 100 MG CAPSULE PO SCH (22:52)
[2017-09-08] MEDS: FESOTERODINE 4 MG TABLET PO SCH (22:53)
[2017-09-09] MEDS: ALBUTEROL/IPRATROPIUM 3 ML NEB RESP TX SCH ×4 (00:13→19:32)
[2017-09-09] MEDS: PIPERACILLIN/TAZOBACTAM 3,375 MG in SODIUM CHLORIDE 0.9% 100 ML IV SCH ×2 (01:47→12:10)
[2017-09-09 07:54] LABS: Basophils % 0.3 % (0.0-0.8); Eosinophils # 0.1 10*3/uL (0.0-0.87); Eosinophils % 0.9 % (0.00-10.9); Hematocrit 25.3 VOL% (42.0-52.0); Immature Granulocytes % 0.9 %; Immature Granulocytes Absolute 0.06 #; Lymphocytes # 1.3 10*3/uL (1.4-4.0); Mean Corpuscular HGB Conc 31.6 GM/DL (32-36); Mean Corpuscular Hemoglobin 28 PG (27-34); Mean Corpuscular Volume 89.7 FL (87-102); Mean Platelet Volume 10.1 FL (9.6-12.0); Monocytes # 0.6 10*3/uL (0.11-0.8); Monocytes % 8.6 % (1.7-12.7); Neutrophils # 4.9 10*3/uL (1.4-7.4); Neutrophils % 70.3 % (38.7-73.9); Platelet Count 152 T/CUMM (130-400); Red Blood Count 2.82 MC/CUMM (3.8-5.5); Red Cell Distribution Width 13.9 % (9.3-17.3)
[2017-09-09 08:22] LABS: Calcium 7.4 MG/DL (8.5-10.1); Osmolality,Calculated 286.5 MOS/KG (273-304); Potassium 3.4 MMOL/L (3.5-5.1)
[2017-09-09 08:25] LABS: Burr Cells Slight; Eosinophils 3 % (0-10); Hypochromasia 1+; Lymphocytes 19 % (20-55); Microcytosis Slight; Ovalocytes Slight; Platelet Estimate Normal; Segmented Neutrophils 70 % (50-85); Total Cells Counted 100
[2017-09-09] MEDS: ZINC OXIDE PASTE 113 GM TUBE TOP SCH ×2 (10:30→21:30)
[2017-09-09] MEDS: DICYCLOMINE 10 MG CAPSULE PO SCH ×2 (10:30→16:40)
[2017-09-09] MEDS: PRO RENAL PO SCH (10:30)
[2017-09-09] MEDS: PANTOPRAZOLE 40 MG TABLET PO SCH (10:30)
[2017-09-09] MEDS: [UNRECOGNIZED DRUG - OTHER] PO SCH (10:30)
[2017-09-09] MEDS: CARVEDILOL 6.25 MG TABLET PO SCH ×2 (10:30→21:30)
[2017-09-09] MEDS: CARBIDOPA/LEVODOPA 25-100 MG TABLET PO SCH ×3 (10:31→21:30)
[2017-09-09] MEDS: rOPINIRole 1 MG TABLET PO SCH ×2 (10:31→16:40)
[2017-09-09] MEDS: cefTRIAXone 2,000 MG in SYRINGE 1 EACH IV SCH ×2 (13:04→23:08)
[2017-09-09] MEDS: ACYCLOVIR IV SCH (13:04)
[2017-09-09] MEDS: SODIUM CHLORIDE 0.9% IV SCH (13:04)
[2017-09-09 15:13] LABS: Glucose,CSF 63 MG/DL (40-70)
[2017-09-09] MEDS: AMPICILLIN INJ 2,000 MG in SODIUM CHLORIDE 0.9% 50 ML IV SCH ×2 (15:49→21:30)
[2017-09-09 16:30] LABS: Appearance,CSF Clear; Lymphocytes,CSF 100 %; Red Blood Cell,CSF 6 C/CUMM; White Blood Cell,CSF 6 C/CUMM
[2017-09-09] MEDS ORDERED: VANCOMYCIN INJ 750 MG in SODIUM CHLORIDE 0.9% 150 ML IV ONE (17:00)
[2017-09-09] MEDS ORDERED: VANCOMYCIN INJ 750 MG in SODIUM CHLORIDE 0.9% 150 ML IV PRN (19:00)
[2017-09-10] MEDS: ALBUTEROL/IPRATROPIUM 3 ML NEB RESP TX SCH ×4 (00:57→19:41)
[2017-09-10] MEDS: AMPICILLIN INJ 2,000 MG in SODIUM CHLORIDE 0.9% 50 ML IV SCH ×3 (05:05→22:23)
[2017-09-10 05:58] LABS: Basophils % 0.3 % (0.0-0.8); Eosinophils % 0.6 % (0.00-10.9); Hematocrit 26.1 VOL% (42.0-52.0); Hemoglobin 8.3 GM/DL (14.0-18.0); Immature Granulocytes % 0.9 %; Immature Granulocytes Absolute 0.06 #; Lymphocytes # 1.3 10*3/uL (1.4-4.0); Lymphocytes % 19.5 % (21.2-54.2); Mean Corpuscular HGB Conc 31.8 GM/DL (32-36); Mean Corpuscular Hemoglobin 28 PG (27-34); Mean Corpuscular Volume 88.8 FL (87-102); Mean Platelet Volume 10.2 FL (9.6-12.0); Monocytes # 0.6 10*3/uL (0.11-0.8); Monocytes % 9.7 % (1.7-12.7); Neutrophils # 4.4 10*3/uL (1.4-7.4); Platelet Count 156 T/CUMM (130-400); Red Blood Count 2.94 MC/CUMM (3.8-5.5); Red Cell Distribution Width 13.8 % (9.3-17.3); White Blood Count 6.4 T/CUMM (4-12)
[2017-09-10 06:27] LABS: Calcium 7.3 MG/DL (8.5-10.1); Osmolality,Calculated 280.5 MOS/KG (273-304); Potassium 3.1 MMOL/L (3.5-5.1)
[2017-09-10 06:33] LABS: Band Neutrophils 1 % (0-10); Eosinophils 1 % (0-10); Lymphocytes 16 % (20-55); Segmented Neutrophils 74 % (50-85); Total Cells Counted 100
[2017-09-10 06:34] LABS: Giant Platelets Few; Hypochromasia 1+; Microcytosis Slight; Ovalocytes Slight; Platelet Estimate Normal
[2017-09-10] MEDS: CARBIDOPA/LEVODOPA 25-100 MG TABLET PO SCH ×3 (09:45→22:27)
[2017-09-10] MEDS: PRO RENAL PO SCH (09:45)
[2017-09-10] MEDS: ZINC OXIDE PASTE 113 GM TUBE TOP SCH ×2 (09:45→22:27)
[2017-09-10] MEDS: CARVEDILOL 6.25 MG TABLET PO SCH (09:45)
[2017-09-10] MEDS: [UNRECOGNIZED DRUG - OTHER] PO SCH (09:45)
[2017-09-10] MEDS: PANTOPRAZOLE 40 MG TABLET PO SCH (09:45)
[2017-09-10] MEDS ORDERED: POTASSIUM CHLORIDE 20 MEQ TABLET PO ONE (10:35)
[2017-09-10] MEDS: cefTRIAXone 2,000 MG in SYRINGE 1 EACH IV SCH (12:15)
[2017-09-10] MEDS: ACYCLOVIR IV SCH (12:55)
[2017-09-10] MEDS: SODIUM CHLORIDE 0.9% IV SCH (12:55)
[2017-09-11] MEDS: cefTRIAXone 2,000 MG in SYRINGE 1 EACH IV SCH ×3 (00:02→23:03)
[2017-09-11] MEDS: ALBUTEROL/IPRATROPIUM 3 ML NEB RESP TX SCH ×4 (00:31→19:16)
[2017-09-11] MEDS: CARVEDILOL 3.125 MG TABLET PO SCH ×3 (01:48→21:26)
[2017-09-11] MEDS: AMPICILLIN INJ 2,000 MG in SODIUM CHLORIDE 0.9% 50 ML IV SCH ×3 (06:37→22:14)
[2017-09-11] MEDS ORDERED: VANCOMYCIN INJ 500 MG in SODIUM CHLORIDE 0.9% 100 ML IV PRN (09:00)
[2017-09-11] MEDS: ZINC OXIDE PASTE 113 GM TUBE TOP SCH ×2 (11:38→21:20)
[2017-09-11] MEDS: PANTOPRAZOLE 40 MG TABLET PO SCH (11:38)
[2017-09-11] MEDS: PRO RENAL PO SCH (11:38)
[2017-09-11] MEDS: [UNRECOGNIZED DRUG - OTHER] PO SCH (11:38)
[2017-09-11] MEDS: CARBIDOPA/LEVODOPA 25-100 MG TABLET PO SCH ×3 (11:39→22:10)
[2017-09-11] MEDS: ACYCLOVIR IV SCH (12:31)
[2017-09-11] MEDS: SODIUM CHLORIDE 0.9% IV SCH (12:31)
[2017-09-11 13:58] LABS: Calcium 7.9 MG/DL (8.5-10.1); Osmolality,Calculated 276.5 MOS/KG (273-304); Potassium 3.6 MMOL/L (3.5-5.1)
[2017-09-11] MEDS ORDERED: VANCOMYCIN INJ 500 MG in SODIUM CHLORIDE 0.9% 100 ML IV ONE (20:00)
[2017-09-11] MEDS: ACETAMINOPHEN 650 MG SUPP RECTAL PRN (21:11)
[2017-09-12] MEDS: ALBUTEROL/IPRATROPIUM 3 ML NEB RESP TX SCH ×4 (01:27→19:41)
[2017-09-12] MEDS: ACETAMINOPHEN 650 MG SUPP RECTAL PRN ×2 (03:30→21:25)
[2017-09-12 05:07] LABS: Calcium 7.8 MG/DL (8.5-10.1); Osmolality,Calculated 280.4 MOS/KG (273-304); Potassium 3.3 MMOL/L (3.5-5.1)
[2017-09-12] MEDS: AMPICILLIN INJ 2,000 MG in SODIUM CHLORIDE 0.9% 50 ML IV SCH ×3 (05:35→22:46)
[2017-09-12] MEDS: ZINC OXIDE PASTE 113 GM TUBE TOP SCH ×2 (09:05→21:25)
[2017-09-12] MEDS: PRO RENAL PO SCH (09:05)
[2017-09-12] MEDS: PANTOPRAZOLE 40 MG TABLET PO SCH (09:05)
[2017-09-12] MEDS: [UNRECOGNIZED DRUG - OTHER] PO SCH (09:05)
[2017-09-12] MEDS: CARVEDILOL 3.125 MG TABLET PO SCH ×2 (09:05→21:26)
[2017-09-12] MEDS: CARBIDOPA/LEVODOPA 25-100 MG TABLET PO SCH ×3 (09:05→21:26)
[2017-09-12 12:56] LABS: VDRL Spinal Fluid Negative (Negative)
[2017-09-12] MEDS: cefTRIAXone 2,000 MG in SYRINGE 1 EACH IV SCH (13:25)
[2017-09-12] MEDS: ACYCLOVIR IV SCH (13:33)
[2017-09-12] MEDS: SODIUM CHLORIDE 0.9% IV SCH (13:33)
[2017-09-12] MEDS: POTASSIUM CHLORIDE 20 MEQ TABLET PO SCH (16:15)
[2017-09-13] MEDS: cefTRIAXone 2,000 MG in SYRINGE 1 EACH IV SCH ×2 (01:02→13:20)
[2017-09-13] MEDS: ALBUTEROL/IPRATROPIUM 3 ML NEB RESP TX SCH ×4 (01:44→20:21)
[2017-09-13] MEDS: AMPICILLIN INJ 2,000 MG in SODIUM CHLORIDE 0.9% 50 ML IV SCH (05:43)
[2017-09-13] MEDS: ZINC OXIDE PASTE 113 GM TUBE TOP SCH ×3 (05:45→22:50)
[2017-09-13 11:26] LABS: Epstein-Barr Virus Result Negative (Negative); Epstein-Barr Virus Source CSF; Specimen Source CSF
[2017-09-13] MEDS: POTASSIUM CHLORIDE 20 MEQ TABLET PO SCH (11:58)
[2017-09-13] MEDS: CARVEDILOL 3.125 MG TABLET PO SCH ×2 (12:00→22:50)
[2017-09-13] MEDS: PANTOPRAZOLE 40 MG TABLET PO SCH (12:00)
[2017-09-13] MEDS: CARBIDOPA/LEVODOPA 25-100 MG TABLET PO SCH ×3 (12:00→22:50)
[2017-09-13] MEDS: PRO RENAL PO SCH (12:01)
[2017-09-13] MEDS: [UNRECOGNIZED DRUG - OTHER] PO SCH (12:01)
[2017-09-13] MEDS: SODIUM CHLORIDE 0.9% IV SCH (13:25)
[2017-09-13] MEDS: ACYCLOVIR IV SCH (13:25)
[2017-09-14] MEDS: ALBUTEROL/IPRATROPIUM 3 ML NEB RESP TX SCH ×4 (01:06→19:38)
[2017-09-14] MEDS: PRO RENAL PO SCH (10:51)
[2017-09-14] MEDS: ZINC OXIDE PASTE 113 GM TUBE TOP SCH ×2 (10:51→21:48)
[2017-09-14] MEDS: [UNRECOGNIZED DRUG - OTHER] PO SCH (10:51)
[2017-09-14] MEDS: CARVEDILOL 3.125 MG TABLET PO SCH ×2 (13:12→21:48)
[2017-09-14] MEDS: POTASSIUM CHLORIDE 20 MEQ TABLET PO SCH (13:12)
[2017-09-14] MEDS: CARBIDOPA/LEVODOPA 25-100 MG TABLET PO SCH ×3 (13:12→21:48)
[2017-09-14] MEDS: PANTOPRAZOLE 40 MG TABLET PO SCH (13:12)
[2017-09-15] MEDS: ALBUTEROL/IPRATROPIUM 3 ML NEB RESP TX SCH ×3 (01:11→13:35)
[2017-09-15 08:46] LABS: Basophils % 0.5 % (0.0-0.8); Eosinophils # 0.1 10*3/uL (0.0-0.87); Eosinophils % 0.9 % (0.00-10.9); Hematocrit 26.1 VOL% (42.0-52.0); Hemoglobin 8.4 GM/DL (14.0-18.0); Immature Granulocytes % 1.1 %; Immature Granulocytes Absolute 0.07 #; Lymphocytes # 1.3 10*3/uL (1.4-4.0); Lymphocytes % 19.7 % (21.2-54.2); Mean Corpuscular HGB Conc 32.2 GM/DL (32-36); Mean Corpuscular Hemoglobin 28 PG (27-34); Mean Corpuscular Volume 87.6 FL (87-102); Mean Platelet Volume 9.6 FL (9.6-12.0); Monocytes # 0.7 10*3/uL (0.11-0.8); Monocytes % 10.7 % (1.7-12.7); Neutrophils # 4.3 10*3/uL (1.4-7.4); Neutrophils % 67.1 % (38.7-73.9); Platelet Count 181 T/CUMM (130-400); Red Blood Count 2.98 MC/CUMM (3.8-5.5); Red Cell Distribution Width 13.9 % (9.3-17.3); White Blood Count 6.4 T/CUMM (4-12)
[2017-09-15 09:10] LABS: Calcium 7.9 MG/DL (8.5-10.1); Osmolality,Calculated 282.3 MOS/KG (273-304); Potassium 3.3 MMOL/L (3.5-5.1)
[2017-09-15 10:07] LABS: Acanthocytes Few; Band Neutrophils 5 % (0-10); Eosinophils 2 % (0-10); Hypochromasia 1+; Lymphocytes 19 % (20-55); Segmented Neutrophils 65 % (50-85); Total Cells Counted 100
[2017-09-15 10:08] LABS: Microcytosis Slight; Ovalocytes Slight
[2017-09-15 10:09] LABS: Platelet Estimate Adequate
[2017-09-15] MEDS: CARBIDOPA/LEVODOPA 25-100 MG TABLET PO SCH ×3 (10:09→17:36)
[2017-09-15] MEDS: PANTOPRAZOLE 40 MG TABLET PO SCH (10:09)
[2017-09-15] MEDS: [UNRECOGNIZED DRUG - OTHER] PO SCH (10:09)
[2017-09-15] MEDS: POTASSIUM CHLORIDE 20 MEQ TABLET PO SCH ×2 (10:09→11:00)
[2017-09-15] MEDS: CARVEDILOL 3.125 MG TABLET PO SCH ×2 (10:09→11:00)
[2017-09-15] MEDS: PRO RENAL PO SCH (10:09)
[2017-09-15] MEDS: ZINC OXIDE PASTE 113 GM TUBE TOP SCH (11:01)
[2017-09-15 13:13] VITALS: BP 107/57
== END 2017-09-15 15:53 | disposition hospice, home (50) | DRG 871 ==
LOC: EDBD → EDUNIT# → N.ED 11:27 → SUATTDRO 13:26 → N.EDINP 13:26 → N.CC 14:10 → N.5E 08-31 12:30
PROVIDERS: ADMIT Family Medicine; ATTEND Internal Medicine